=== PATIENT | female | born 1970 | race Caucasian/White ===

== ENCOUNTER 2016-10-10 08:57 | Emergency (ER) | payer OTHER ==
--- NOTE | 2016-10-10 10:14 | ED ---
General Adult HPI - General Chief complaint: Skin/Abscess/Foreign Body Stated complaint: abscess on buttocks Time Seen by Provider: 10/10/16 09:22 Source: patient, RN notes reviewed Mode of arrival: ambulatory Limitations: no limitations - History of Present Illness Initial comments: Patient 46-year-old female who presents emergency room today with a chief complaint of an abscess to the left side of the rectum 5 days. She states she' s been using some sitz baths with no relief. States never had some symptoms of past. States seems to be getting larger and more painful. Denies any other complaints or associated symptoms. Patient denies any recent fever, chills, shortness of breath, chest pain, back pain, abdominal pain, nausea or vomiting, numbness or tingling, dysuria or hematuria, constipation or diarrhea, headaches or visual changes, or any other complaints. - Related Data Previous Rx's Medication Instructions Recorded Amoxicillin/Potassium Clav 1 each PO Q12HR #20 tab 10/10/16 [Augmentin 875-125 Tablet] Hydrocodone/Acetaminophen [[place] 1 each PO Q6HR PRN #20 tab 10/10/16 5-325] Ibuprofen [Motrin] 600 mg PO Q6HR PRN #40 day 10/10/16 metroNIDAZOLE [Flagyl] 500 mg PO TID 7 Days 10/10/16 Allergies Allergy/AdvReac Type Severity Reaction Status Date / Time erythromycin base Allergy Rash/Hives Verified 10/10/16 09:05 Review of Systems ROS Statement: Those systems with pertinent positive or pertinent negative responses have been documented in the HPI. ROS Other: All systems not noted in ROS Statement are negative. Past Medical History Past Medical History: No Reported History History of Any Multi-Drug Resistant Organisms: None Reported Past Surgical History: Tubal Ligation Past Psychological History: No Psychological Hx Reported Smoking Status: Current every day smoker Past Alcohol Use History: Rare Past Drug Use History: None Reported General Exam - General Exam Comments Initial Comments: General: The patient is awake and alert, in no distress, and does not appear acutely ill. Eye: Pupils are equal, round and reactive to light, extra-ocular movements are intact. No nystagmus. There is normal conjunctiva bilaterally. No signs of icterus. Ears, nose, mouth and throat: There are moist mucous membranes and no oral lesions. Neck: The neck is supple, there is no tenderness or JVD. Cardiovascular: There is a regular rate and rhythm. No murmur, rub or gallop is appreciated. Respiratory: Lungs are clear to auscultation, respirations are non-labored, breath sounds are equal. No wheezes, stridor, rales, or rhonchi. Musculoskeletal: Normal ROM, no tenderness. Strength 5/5. Sensation intact. Pulses equal bilaterally 2+. Neurological: A&O x 3. CN II-XII intact, There are no obvious motor or sensory deficits. Coordination appears grossly intact. Speech is normal. Skin: Skin is warm and dry and no rashes or lesions are noted. Psychiatric: Cooperative, appropriate mood & affect, normal judgment. : ER nurse renu Huang present for exam. Patient does have abscess perirectal on the left side measuring approximately 5 cm. No area of fluctuance or abscess head. Limitations: no limitations Course Vital Signs 10/10/16 09:03 Temperature 98.7 F Pulse Rate 101 H Respiratory 18 Rate Blood Pressure 140/83 O2 Sat by Pulse 98 Oximetry Medical Decision Making - Medical Decision Making Patient was seen in conjunction with attending physician . She'll be started on antibiotics of Augmentin and Flagyl. Advised follow-up with the surgeon tomorrow. Advised return if symptoms increase or worsen. Disposition Clinical Impression: Perirectal abscess Disposition: HOME SELF-CARE Condition: Good Instructions: Abscess (ED) Additional Instructions: Please continue warm sitz baths along with antibiotics as prescribed. Please follow-up surgeon the next 1-2 days. Please return to emergency room symptoms increase or worsen or for any other concerns. Prescriptions: Amoxicillin/Potassium Clav [Augmentin 875-125 Tablet] 1 each PO Q12HR #20 tab Hydrocodone/Acetaminophen [[place] 5-325] 1 each PO Q6HR PRN #20 tab PRN Reason: Pain Ibuprofen [Motrin] 600 mg PO Q6HR PRN #40 day PRN Reason: Pain metroNIDAZOLE [Flagyl] 500 mg PO TID 7 Days Referrals: Reji Guardado MD [Primary Care Provider] - 1-2 days Brandi Wong MD [STAFF PHYSICIAN] - 1-2 days Time of Disposition: 10:13
[2016-10-10] MEDS ORDERED: IBUPROFEN 600 MG TAB PO STA (10:25)
[2016-10-10 10:35] VITALS: BP 124/58; PULSE 76; RESP 16; TEMP 99.8
== END 2016-10-10 10:33 | disposition home or self-care (01) ==
LOC: EC 08:57
DX: K61.1 Rectal abscess (principal); F17.200 Nicotine dependence, unspecified, uncomplicated; Z88.1 Allergy status to other antibiotic agents
CPT/HCPCS: 99283

== ENCOUNTER 2018-04-09 16:44 | Observation (INO) | payer OTHER ==
[2018-04-09] MEDS ORDERED: MORPHINE SULFATE 4 MG/ML SYRINGE IVP STA (17:58)
[2018-04-09] MEDS ORDERED: ONDANSETRON 4 MG/2 ML VIAL IVP STA (17:58)
[2018-04-09 18:48] LABS: Basophils # (A) 0.1 k/uL (0-0.2); Basophils % (A) 0 %; Eosinophils # (A) 0.2 k/uL (0-0.7); Eosinophils % (A) 2 %; HCT 42.2 % (34.0-46.0); HGB 14.7 gm/dL (11.4-16.0); Lymphocytes # (A) 2.6 k/uL (1.0-4.8); Lymphocytes % (A) 23 %; MCH 33.1 pg (25.0-35.0); MCHC 34.8 g/dL (31.0-37.0); MCV 95.3 fL (80.0-100.0); Mean Platelet Volume 6.6; Monocytes # (A) 0.5 k/uL (0-1.0); Monocytes % (A) 4 %; Neutrophils # (A) 7.9 k/uL (1.3-7.7); Neutrophils % (A) 70 %; Platelet Count 374 k/uL (150-450); RBC 4.43 m/uL (3.80-5.40); RDW 12.1 % (11.5-15.5); WBC 11.3 k/uL (3.8-10.6)
[2018-04-09 18:53] LABS: ALT 48 U/L (9-52); AST 30 U/L (14-36); Albumin 4.1 g/dL (3.5-5.0); Alkaline Phosphatase 105 U/L (38-126); Anion Gap 9 mmol/L; Blood Urea Nitrogen 15 mg/dL (7-17); Calcium 9.6 mg/dL (8.4-10.2); Carbon Dioxide 25 mmol/L (22-30); Chloride 105 mmol/L (98-107); Glucose 93 mg/dL (74-99); Potassium 4.4 mmol/L (3.5-5.1); Sodium 139 mmol/L (137-145); Total Bilirubin 0.4 mg/dL (0.2-1.3); Total Protein 7.7 g/dL (6.3-8.2)
--- NOTE | 2018-04-09 19:13 | CT ---
EXAMINATION TYPE: CT pelvis w con DATE OF EXAM: 04/09/2018 COMPARISON: None HISTORY: Rectal pain. CT DLP: 530.2 mGycm Automated exposure control for dose reduction was used. CONTRAST: Performed with IV Contrast, patient injected with 100ml mL of Isovue 300. FINDINGS: The visualized kidneys appear normal. There is no hydronephrosis. Ureters are not dilated. Bladder di stends smoothly. Uterus is anteverted. There is no free fluid in the pelvis. I see no pelvic mass. There is 3 x 1.7 cm fluid collection at the inferior left lateral aspect of the anus consistent with perirectal or perianal abscess. The bony pelvis is intact. I see no bony destructive process. The rosendo endix appears normal. IMPRESSION: PERIANAL ABSCESS ON THE LEFT SIDE.
--- NOTE | 2018-04-09 19:16 | ED ---
General Adult HPI <Valdez Leiva - Last Filed: 04/09/18 19:30> - General Source: patient, RN notes reviewed Mode of arrival: ambulatory Limitations: no limitations <Jase Kilpatrick - Last Filed: 04/09/18 20:07> - General Chief complaint: Skin/Abscess/Foreign Body Stated complaint: Abcess Time Seen by Provider: 04/09/18 17:03 - History of Present Illness Initial comments: 47-year-old female with a past medical history of perianal abscess presents to the emergency department for abscess. Patient states this is the same abscess that she had a year ago. Patient states it started 2 weeks ago but did pain did not start until 4 days ago. She denies fevers or chills at home. Patient states she has had the abscess drained before by a surgeon one year ago. She states it is now painful to apply pressure or sit on. She denies any abdominal pain.Patient has no other complaints at this time including shortness of breath , chest pain, abdominal pain, nausea or vomiting, headache, or visual changes. ( Jase Kilpatrick) - Related Data Home Medications Medication Instructions Recorded Confirmed Cetirizine HCl [Zyrtec] 10 mg PO DAILY PRN 04/09/18 04/09/18 Ibuprofen [Motrin Ib] 400 mg PO Q6H PRN 04/09/18 04/09/18 Naproxen Sodium [Aleve] 220 mg PO BID PRN 04/09/18 04/09/18 Allergies Allergy/AdvReac Type Severity Reaction Status Date / Time erythromycin base Allergy Rash/Hives Verified 04/09/18 17:07 Review of Systems ROS Other: All systems not noted in ROS Statement are negative. <Valdez Leiva - Last Filed: 04/09/18 19:30> ROS Other: All systems not noted in ROS Statement are negative. <Jase Kilpatrick - Last Filed: 04/09/18 20:07> ROS Statement: Those systems with pertinent positive or pertinent negative responses have been documented in the HPI. Past Medical History Past Medical History: No Reported History History of Any Multi-Drug Resistant Organisms: None Reported Past Surgical History: Tubal Ligation Past Psychological History: No Psychological Hx Reported Smoking Status: Current every day smoker Past Alcohol Use History: None Reported Past Drug Use History: None Reported - Past Family History Mother Family Medical History: Hypertension Father History Unknown: Yes Additional Family Medical History / Comment(s): macular degeneration <Jase Kilpatrick - Last Filed: 04/09/18 20:07> General Exam Limitations: no limitations General appearance: alert, in no apparent distress Head exam: Present: atraumatic, normocephalic, normal inspection Eye exam: Present: normal appearance, PERRL, EOMI. Absent: scleral icterus, conjunctival injection, periorbital swelling ENT exam: Present: normal exam, mucous membranes moist Neck exam: Present: normal inspection, full ROM. Absent: tenderness, meningismus, lymphadenopathy Respiratory exam: Present: normal lung sounds bilaterally. Absent: respiratory distress, wheezes, rales, rhonchi, stridor Cardiovascular Exam: Present: regular rate, normal rhythm, normal heart sounds. Absent: systolic murmur, diastolic murmur, rubs, gallop, clicks GI/Abdominal exam: Present: soft, normal bowel sounds. Absent: distended, tenderness, guarding, rebound, rigid Rectal exam: Present: other (patient as a 4 cm x 2 cm abscess noted along the left side of the anus, mild surrounding erythema about 3 x 5 cm.) <Jase Kilpatrick - Last Filed: 04/09/18 20:07> Vital Signs 04/09/18 16:57 Temperature 98.4 F Pulse Rate 88 Respiratory 18 Rate Blood Pressure 137/65 O2 Sat by Pulse 100 Oximetry Medical Decision Making - Lab Data Result diagrams: 04/09/18 18:26 04/09/18 18:26 <Valdez Leiva - Last Filed: 04/09/18 19:30> - Lab Data Result diagrams: 04/09/18 18:26 04/09/18 18:26 <Jase Kilpatrick - Last Filed: 04/09/18 20:07> - Medical Decision Making Patient was earlier evaluated by myself, Dr. Leiva. CT report reviewed. Case was discussed with Dr. Batres, who will admit for surgical call. Nothing by mouth after midnight. (Valdez Leiva) 47-year-old female with a past medical history. Anal abscess presents to the emergency department for abscess. Patient states this has been ongoing for about 2 weeks but just started to become painful the past 4 days. Patient had previously seen a surgeon for this and it was drained. I did look at the reports and it was a confirmed perianal abscess at that time about 1.5 years ago. At this time patient denies fevers or chills. She does state it is painful with pressure. On exam patient is a 4 cm x 2 cm abscess along the left side of the anus. No drainage noted at this time. Mild surrounding erythema about [address] Leiva also visualized abscess. At this time blood work was ordered which showed a white count of 11.3, CBC and CMP otherwise unremarkable. CT pelvis with contrast shows a 3 x 1.7 cm fluid collection at the inferior lateral left aspect of the anus consistent with perirectal or. Anal abscess. Impression reads perianal abscess on the left. C Dr. Mares was consulted by Dr. Leiva who recommended Unasyn, nothing by mouth after midnight, and admission. (Jase Kilpatrick) - Lab Data Lab Results 04/09/18 04/09/18 Range/Units 18:26 18:26 WBC 11.3 H (3.8-10.6) k/uL RBC 4.43 (3.80-5.40) m/uL Hgb 14.7 (11.4-16.0) gm/dL Hct 42.2 (34.0-46.0) % MCV 95.3 (80.0-100.0) fL MCH 33.1 (25.0-35.0) pg MCHC 34.8 (31.0-37.0) g/dL RDW 12.1 (11.5-15.5) % Plt Count 374 (150-450) k/uL Neutrophils % 70 % Lymphocytes % 23 % Monocytes % 4 % Eosinophils % 2 % Basophils % 0 % Neutrophils # 7.9 H (1.3-7.7) k/uL Lymphocytes # 2.6 (1.0-4.8) k/uL Monocytes # 0.5 (0-1.0) k/uL Eosinophils # 0.2 (0-0.7) k/uL Basophils # 0.1 (0-0.2) k/uL Sodium 139 (137-145) mmol/L Potassium 4.4 (3.5-5.1) mmol/L Chloride 105 (98-107) mmol/L Carbon Dioxide 25 (22-30) mmol/L Anion Gap 9 mmol/L BUN 15 (7-17) mg/dL Creatinine 0.61 (0.52-1.04) mg/dL Est GFR (CKD-EPI)AfAm >90 (>60 ml/min/1.73 sqM) Est GFR (CKD-EPI)NonAf >90 (>60 ml/min/1.73 sqM) Glucose 93 (74-99) mg/dL Calcium 9.6 (8.4-10.2) mg/dL Total Bilirubin 0.4 (0.2-1.3) mg/dL AST 30 (14-36) U/L ALT 48 (9-52) U/L Alkaline Phosphatase 105 (38-126) U/L Total Protein 7.7 (6.3-8.2) g/dL Albumin 4.1 (3.5-5.0) g/dL Disposition <Valdez Leiva - Last Filed: 04/09/18 19:30> Is patient prescribed a controlled substance at d/c from ED?: No Time of Disposition: 20:07 <Jase Kilpatrick - Last Filed: 04/09/18 20:07> Clinical Impression: Perianal abscess Disposition: ADMITTED IP TO THIS HOSP Condition: Good Referrals: Reji Guardado MD [Primary Care Provider] - 1-2 days
[2018-04-09] MEDS ORDERED: ONDANSETRON 4 MG/2 ML VIAL IVP PRN (20:03)
[2018-04-09] MEDS ORDERED: NALOXONE 0.4 MG/ML 1 ML VIAL IV PRN (20:03)
[2018-04-09] MEDS ORDERED: NICOTINE 14MG/24HR PATCH TRANSDERM STA (20:06)
[2018-04-09] MEDS: SODIUM CHLORIDE 0.9% 1,000 ML IV SCH (20:39)
[2018-04-09] MEDS: HYDROmorphone 1 MG/ML 1 ML SYRINGE IVP PRN (20:39)
[2018-04-09] MEDS: AMPICILLIN-SULBACTAM 3 GM in SODIUM CHLORIDE 0.9% 100 ML IVPB SCH (21:55)
[2018-04-10] MEDS: HYDROmorphone 1 MG/ML 1 ML SYRINGE IVP PRN ×2 (00:37→08:02)
[2018-04-10] MEDS: MORPHINE SULFATE 4 MG/ML SYRINGE IV PRN ×2 (04:47→13:21)
[2018-04-10] MEDS: AMPICILLIN-SULBACTAM 3 GM in SODIUM CHLORIDE 0.9% 100 ML IVPB SCH ×4 (04:47→21:55)
[2018-04-10] MEDS: SODIUM CHLORIDE 0.9% 1,000 ML IV SCH ×2 (08:02→17:28)
[2018-04-10 09:35] LABS: Basophils # (A) 0.1 k/uL (0-0.2); Basophils % (A) 1 %; Eosinophils # (A) 0.2 k/uL (0-0.7); Eosinophils % (A) 3 %; HCT 39.9 % (34.0-46.0); HGB 12.9 gm/dL (11.4-16.0); Lymphocytes # (A) 2.1 k/uL (1.0-4.8); Lymphocytes % (A) 25 %; MCH 31.1 pg (25.0-35.0); MCHC 32.4 g/dL (31.0-37.0); MCV 96.1 fL (80.0-100.0); Mean Platelet Volume 6.5; Monocytes # (A) 0.5 k/uL (0-1.0); Monocytes % (A) 6 %; Neutrophils # (A) 5.3 k/uL (1.3-7.7); Neutrophils % (A) 63 %; Platelet Count 369 k/uL (150-450); RBC 4.15 m/uL (3.80-5.40); RDW 12.3 % (11.5-15.5); WBC 8.4 k/uL (3.8-10.6)
--- NOTE | 2018-04-10 09:41 | P.GSHP ---
History of Present Illness H&P Date: 04/10/18 48-year-old female presented on the day of admission to the emergency room with a chief complaint of developing pain in the perineal area no fever chills. Patient stated that she had 4 days ago increased pain in the perineal area with an abscess. stated it initially started 2 weeks ago when she developed some swelling and tenderness in the left perineal area. stated that she had some Flagyl left over from last hospitalization she did take it. There was no relief. Patient does have a history of incision and drainage of an ulcer of the left coccyx peritoneal area debridement was done on September [address] hanks. Patient states that she has not had any recurrence until this current episode. In the emergency room a computed tomography scan of the pelvis with contrast was obtained it did show the perianal abscess on the left side measuring 3 x 1.7 centimeter in the left lateral aspect of the anus consistent with a perianal abscess. The area is tender to the touch firm warm with redness Past surgical history incision and drainage of the left perineal area September 2016 , tubal ligation. Past medical history none. Social current every day smoker - Review of Systems Comment: Essentially unremarkable except as mentioned in the present Past Medical History Past Medical History: No Reported History History of Any Multi-Drug Resistant Organisms: None Reported Past Surgical History: Tubal Ligation Past Psychological History: No Psychological Hx Reported Smoking Status: Current every day smoker Past Alcohol Use History: None Reported Past Drug Use History: None Reported - Past Family History Mother Family Medical History: Hypertension Father History Unknown: Yes Additional Family Medical History / Comment(s): macular degeneration Medications and Allergies Home Medications Medication Instructions Recorded Confirmed Type Cetirizine HCl [Zyrtec] 10 mg PO DAILY PRN 04/09/18 04/09/18 History Ibuprofen [Motrin Ib] 800 mg PO Q6H PRN 04/09/18 04/09/18 History Naproxen Sodium [Aleve] 220 mg PO BID PRN 04/09/18 04/09/18 History Allergies Allergy/AdvReac Type Severity Reaction Status Date / Time erythromycin base Allergy Severe Rash/Hives Verified 04/09/18 21:41 avocado AdvReac Rash/Hives Verified 04/09/18 21:42 Surgical - Exam Vital Signs Temp Pulse Resp BP Pulse Ox 98.4 F 88 18 137/65 100 04/09/18 16:57 04/09/18 16:57 04/09/18 16:57 04/09/18 16:57 04/09/18 16:57 GENERAL APPEARANCE: 48-year-old female patient is alert, oriented, in no acute distress. VITAL SIGNS: Reviewed HEENT: Head is normocephalic and atraumatic. Pupils are equal and reactive. The nares are patent. Oropharynx is clear without lesions. NECK: Supple without lymphadenopathy. Traches midline. HEART: S1, S2. Regular rate and rhythm. No murmur denying chest pain LUNGS: No crackles or wheezes are heard. On room air no shortness of breath ABDOMEN: Soft, nontender, nondistended with good bowel sounds. No peritoneal signs. No palpable organomegaly or masses. Reports no nausea vomiting no frequent stooling denies any burning on urination when questioning EXTREMITIES: Normal skin color and turgor. No cyanosis, rash, ulceration, clubbing or edema. Radial pedal pulses are 2/4 bilaterally. NEUROLOGICAL: No focal deficits. Strength and sensation are grossly intact. rectal exam left side of the anus moderate amount of tenderness with surrounding erythema approximate 4 x 2 cm along the left side of the anus area firm and tender to the touch no drainage no open area Results - Labs 04/10/18 09:10 04/09/18 18:26 Abnormal Lab Results - Last 24 Hours (Table) 04/09/18 Range/Units 18:26 WBC 11.3 H (3.8-10.6) k/uL Neutrophils # 7.9 H (1.3-7.7) k/uL Diabetes panel 04/09/18 Range/Units 18:26 Sodium 139 (137-145) mmol/L Potassium 4.4 (3.5-5.1) mmol/L Chloride 105 (98-107) mmol/L Carbon Dioxide 25 (22-30) mmol/L BUN 15 (7-17) mg/dL Creatinine 0.61 (0.52-1.04) mg/dL Glucose 93 (74-99) mg/dL Calcium 9.6 (8.4-10.2) mg/dL AST 30 (14-36) U/L ALT 48 (9-52) U/L Alkaline Phosphatase 105 (38-126) U/L Total Protein 7.7 (6.3-8.2) g/dL Albumin 4.1 (3.5-5.0) g/dL Calcium panel 04/09/18 Range/Units 18:26 Calcium 9.6 (8.4-10.2) mg/dL Albumin 4.1 (3.5-5.0) g/dL Pituitary panel 04/09/18 Range/Units 18:26 Sodium 139 (137-145) mmol/L Potassium 4.4 (3.5-5.1) mmol/L Chloride 105 (98-107) mmol/L Carbon Dioxide 25 (22-30) mmol/L BUN 15 (7-17) mg/dL Creatinine 0.61 (0.52-1.04) mg/dL Glucose 93 (74-99) mg/dL Calcium 9.6 (8.4-10.2) mg/dL Adrenal panel 04/09/18 Range/Units 18:26 Sodium 139 (137-145) mmol/L Potassium 4.4 (3.5-5.1) mmol/L Chloride 105 (98-107) mmol/L Carbon Dioxide 25 (22-30) mmol/L BUN 15 (7-17) mg/dL Creatinine 0.61 (0.52-1.04) mg/dL Glucose 93 (74-99) mg/dL Calcium 9.6 (8.4-10.2) mg/dL Total Bilirubin 0.4 (0.2-1.3) mg/dL AST 30 (14-36) U/L ALT 48 (9-52) U/L Alkaline Phosphatase 105 (38-126) U/L Total Protein 7.7 (6.3-8.2) g/dL Albumin 4.1 (3.5-5.0) g/dL Assessment and Plan Assessment: Impression Present on admission tenderness swelling pain left perineal area suspect due to left side perirectal abscess measure 4 x 2 cm History of a prior incision and drainage September 2016 of the left peritoneal abscess CAT scan pelvis with contrast shows 3 x 1.7 fluid collection consistent with perirectal or anal abscess Current every day smoker Present on admission leukocytosis suspect due to an perianal perirectal abscess Plan Keep nothing by mouth for now tentative schedule for an incision and drainage of the perineal abscess per Dr. stephanie PATEL Unasyn as ordered IV fluid as ordered DVT and GI prophylaxis Further recommendations pending The above impression and plan of care have been discussed and directed by signing physician. Mackenzie Fabian nurse practitioner acting as scribe for signing physician.
[2018-04-10] MEDS ORDERED: IV FLUID CONTINUATION 500 ML IV ONE (14:19)
[2018-04-10] MEDS ORDERED: ONDANSETRON 4 MG/2 ML VIAL IVP ONE (14:40)
[2018-04-10] MEDS ORDERED: DEXAMETHASONE SOD PHOS (MDV) 100 MG/10 ML VIAL IVP ONE (14:40)
[2018-04-10] MEDS ORDERED: HEPARIN SODIUM,PORCINE 5,000 UNIT/ML 1 ML VIAL SQ ONE (14:41)
[2018-04-10] MEDS ORDERED: fentaNYL (PF) 50 MCG/ML 2 ML AMP ONE (16:16)
[2018-04-10] MEDS ORDERED: PROPOFOL 10 MG/ML 20 ML VIAL IV ONE (16:16)
[2018-04-10] MEDS ORDERED: MIDAZOLAM 2 MG/2 ML VIAL ONE (16:16)
[2018-04-10] MEDS ORDERED: BUPIVACAIN-EPI 0.25%-1:200,000 30 ML VIAL SQ ONE (16:32)
[2018-04-10] MEDS ORDERED: IV FLUID CONTINUATION 1,000 ML IV ONE ×2 (16:51)
--- NOTE | 2018-04-10 17:34 | P.OP ---
Date of Procedure: 04/10/18 Preoperative Diagnosis: Perianal abscess Postoperative Diagnosis: Perianal abscess Procedure(s) Performed: Incision and drainage of perianal abscess Anesthesia: MAC Surgeon: Kayode Mares Estimated Blood Loss (ml): 5 Pathology: other (Wound culture) Condition: stable Disposition: PACU Description of Procedure: The patient's placed on the operating table in the supine position. She received IV sedation. She is placed in stirrups. Patient had a left perianal abscess. The area was anesthetized 1% local Xylocaine. A cruciate incision was made over the abscess. The abscess cavity was cultured. The wound was packed with iodoform Nu Gauze. Patient top procedure well was sent to recovery room stable condition.
[2018-04-10] MEDS ORDERED: NICOTINE 21MG/24HR PATCH TRANSDERM SCH (21:00)
[2018-04-11] MEDS: SODIUM CHLORIDE 0.9% 1,000 ML IV SCH (03:34)
[2018-04-11] MEDS: AMPICILLIN-SULBACTAM 3 GM in SODIUM CHLORIDE 0.9% 100 ML IVPB SCH ×2 (03:34→10:01)
[2018-04-11] MEDS: MORPHINE SULFATE 4 MG/ML SYRINGE IV PRN ×3 (07:48→15:01)
--- NOTE | 2018-04-11 09:06 | P.CONS ---
History of Present Illness - Reason for Consult Consult date: 04/11/18 Perianal abscess - History of Present Illness This is a 48-year-old female patient gives history of having a perianal abscess about one and half years ago and had an I&D done in the doctor' s office. She recently developed pain in the perineal area about 2 weeks ago and then this became more swollen and tender and more painful. She had Flagyl at home from a previous perianal abscess and started taking that but it did not improve. Patient came in to [facility] emergency center. She was afebrile, white count initially 11.3, creatinine 0.61, hCG not detectable. CAT scan of the pelvis revealed a perianal abscess on the left side measuring 3 x 1.7 cm. Patient subsequently underwent I&D with Dr. Mares on April 10. She states that since then the pain and swelling is much improved. She did have low-grade fevers at home but these have resolved. Wound culture is in progress. Blood cultures showing no growth at 24 hours. Patient is currently on Unasyn. Patient is able to tolerate diet with no nausea, vomiting or diarrhea. Review of Systems All systems: negative Constitutional: Denies chills, Denies fatigue, Denies fever, Denies poor appetite, Denies weakness, Denies weight gain Eyes: denies blurred vision, denies pain Ears, nose, mouth and throat: Denies dental pain, Denies dysphagia, Denies headache, Denies mouth pain, Denies sore throat, Denies vertigo Cardiovascular: Denies chest pain, Denies dyspnea on exertion, Denies edema, Denies leg edema, Denies lightheadedness, Denies shortness of breath, Denies syncope Respiratory: Reports cough, Denies cough with sputum, Denies dyspnea, Denies excessive sputum, Denies hemoptysis, Denies home oxygen, Denies wheezing Gastrointestinal: Denies abdominal pain, Denies diarrhea, Denies loss of appetite, Denies nausea, Denies vomiting Genitourinary: Denies dysuria, Denies hematuria, Denies urgency, Denies urinary frequency Musculoskeletal: Denies frequent falls, Denies gait dysfunction, Denies muscle weakness, Denies myalgias Integumentary: Reports wounds, Denies pruritus, Denies rash Neurological: Denies aphasia, Denies balance difficulties, Denies change in mentation, Denies confusion, Denies double vision, Denies headaches, Denies numbness, Denies seizures, Denies weakness Psychiatric: Denies anxiety, Denies depression Endocrine: Denies fatigue, Denies weight change Past Medical History Past Medical History: No Reported History History of Any Multi-Drug Resistant Organisms: None Reported Past Surgical History: Tubal Ligation Additional Past Surgical History / Comment(s): Perianal abscess I&D 2016, perianal abscess I&D 2017 Past Psychological History: No Psychological Hx Reported Smoking Status: Current every day smoker Past Alcohol Use History: None Reported Additional Past Alcohol Use History / Comment(s): Patient is a smoker one pack per day for 18 years. She denies any marijuana or street drug use. 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 Past Drug Use History: None Reported - Past Family History Mother Family Medical History: Hypertension Father History Unknown: Yes Additional Family Medical History / Comment(s): macular degeneration Medications and Allergies Home Medications Medication Instructions Recorded Confirmed Type Cetirizine HCl [Zyrtec] 10 mg PO DAILY PRN 04/09/18 04/09/18 History Ibuprofen [Motrin Ib] 800 mg PO Q6H PRN 04/09/18 04/09/18 History Naproxen Sodium [Aleve] 220 mg PO BID PRN 04/09/18 04/09/18 History Allergies Allergy/AdvReac Type Severity Reaction Status Date / Time erythromycin base Allergy Severe Rash/Hives Verified 04/09/18 21:41 avocado AdvReac Rash/Hives Verified 04/09/18 21:42 Physical Exam Vitals: Vital Signs Temp Pulse Pulse Resp BP Pulse Ox 04/11/18 02:00 97.6 F 71 18 135/80 98 04/10/18 21:11 94 20 151/72 97 04/10/18 20:11 99 20 132/72 96 04/10/18 19:11 89 20 144/79 100 04/10/18 18:41 98.0 F 87 20 145/79 100 04/10/18 18:11 75 20 124/66 99 04/10/18 17:56 79 20 136/87 97 04/10/18 17:41 79 20 112/71 96 04/10/18 17:26 97.9 F 78 20 128/73 97 04/10/18 17:02 92 16 108/80 96 04/10/18 16:47 97.5 F L 90 20 109/56 95 04/10/18 14:15 98.3 F 80 18 118/64 99 04/10/18 12:21 98.3 F 78 16 115/77 97 Intake and Output 04/10/18 04/11/18 04/11/18 22:59 06:59 14:59 Intake Total 1410 200 Output Total 5 Balance 1405 200 Intake: IV 250 Oral 1160 200 Output: Estimated Blood Loss 5 Other: Voiding Method Toilet # Voids 2 Gen: This is a 48-year-old female. She is sitting up in bed appears to be comfortable and in no acute distress. HEENT: Head is atraumatic, normocephalic. Pupils equal, round. Sclerae is anicteric. Conjunctiva pink. His memories of the mouth are moist. NECK: Supple. No JVD. No lymphadenopathy. No thyromegaly. LUNGS: Clear to auscultation. No wheezes or rhonchi. No intercostal retractions. HEART: Regular rate and rhythm. No murmur. ABDOMEN: Soft. Bowel sounds are present. No masses. No tenderness. EXTREMITIES: No pedal edema. No calf tenderness. Dorsalis pedis +2 bilaterally. NEUROLOGICAL: Patient is awake, alert and oriented x3. Cranial nerves 2 through 12 are grossly intact. Results Results: Laboratory Results WBC 8.4 k/uL (3.8-10.6) 04/10/18 09:10 RBC 4.15 m/uL (3.80-5.40) 04/10/18 09:10 Hgb 12.9 gm/dL (11.4-16.0) 04/10/18 09:10 Hct 39.9 % (34.0-46.0) 04/10/18 09:10 MCV 96.1 fL (80.0-100.0) 04/10/18 09:10 MCH 31.1 pg (25.0-35.0) 04/10/18 09:10 MCHC 32.4 g/dL (31.0-37.0) 04/10/18 09:10 RDW 12.3 % (11.5-15.5) 04/10/18 09:10 Plt Count 369 k/uL (150-450) 04/10/18 09:10 Neutrophils % 63 % 04/10/18 09:10 Lymphocytes % 25 % 04/10/18 09:10 Monocytes % 6 % 04/10/18 09:10 Eosinophils % 3 % 04/10/18 09:10 Basophils % 1 % 04/10/18 09:10 Neutrophils # 5.3 k/uL (1.3-7.7) 04/10/18 09:10 Lymphocytes # 2.1 k/uL (1.0-4.8) 04/10/18 09:10 Monocytes # 0.5 k/uL (0-1.0) 04/10/18 09:10 Eosinophils # 0.2 k/uL (0-0.7) 04/10/18 09:10 Basophils # 0.1 k/uL (0-0.2) 04/10/18 09:10 Sodium 139 mmol/L (137-145) 04/09/18 18:26 Potassium 4.4 mmol/L (3.5-5.1) 04/09/18 18:26 Chloride 105 mmol/L (98-107) 04/09/18 18:26 Carbon Dioxide 25 mmol/L (22-30) 04/09/18 18:26 Anion Gap 9 mmol/L 04/09/18 18:26 BUN 15 mg/dL (7-17) 04/09/18 18:26 Creatinine 0.61 mg/dL (0.52-1.04) 04/09/18 18:26 Est GFR (CKD-EPI)AfAm >90 (>60 ml/min/1.73 sqM) 04/09/18 18:26 Est GFR (CKD-EPI)NonAf >90 (>60 ml/min/1.73 sqM) 04/09/18 18:26 Glucose 93 mg/dL (74-99) 04/09/18 18:26 Calcium 9.6 mg/dL (8.4-10.2) 04/09/18 18:26 Total Bilirubin 0.4 mg/dL (0.2-1.3) 04/09/18 18:26 AST 30 U/L (14-36) 04/09/18 18:26 ALT 48 U/L (9-52) 04/09/18 18:26 Alkaline Phosphatase 105 U/L (38-126) 04/09/18 18: Total Protein 7.7 g/dL (6.3-8.2) 04/09/18 18: Albumin 4.1 g/dL (3.5-5.0) 04/09/18 18: HCG, Qual Not Detected 04/10/18 09:10 CBC & Chem 7: 04/10/18 09:10 12 18: Labs: Microbiology - Last 24 Hours (Table) 04/10/18 16:33 Gram Stain - Preliminary Groin Wound Culture - Preliminary 04/10/18 16:33 Anaerobic Culture - Preliminary Groin 04/09/18 18: Blood Culture - Preliminary Blood No Growth after 24 hours Assessment and Plan Plan: This is a 48-year-old female who presented to the hospital with perianal abscess status post I&D with Dr. Mares done on April 10. She is currently on IV antibiotics in form of Unasyn. The patient has been afebrile and is tolerating diet. She is anticipating discharge home today. Antibiotic recommendations will be made. Wound culture is in progress and blood culture showing no growth at 24 hours. Continue supportive care. Further medications as patient progresses. The above dictated assessment and findings were discussed with Dr. Ortiz. The impression and plan of care have been directed as dictated. Trixie Zavala nurse practitioner acting as scribe for Dr. Ortiz.
[2018-04-11 09:22] VITALS: RESP 16
[2018-04-11 12:53] VITALS: BP 137/78; PULSE 79; TEMP 97.9
--- NOTE | 2018-04-11 12:57 | P.CONS ---
History of Present Illness - History of Present Illness On-call hospitalist covering for Dr. Marshall This is a pleasant 48 years old female with past medical history of tubal ligation, no other significant history presents to the surgical service with increasing perineal pain for 4 days duration. Patient already underwent incision and drainage and of the perineal abscess by the surgical team. Patient has been evaluated by infectious disease for antibiotic choice and duration. Patient is stable hemodynamically. Patient denies chest pain or dyspnea. No change in urine or bowel habits. Patient is able to move around with no difficulty. She stated that her primary care doctor has already contacted her. Patient is already set for discharge today and she has an appointment to follow up with Dr. Walker that she is aware of and told me she is going to follow up with Review of Systems CONSTITUTIONAL: No fever, no malaise, no fatigue. HEENT: No recent visual problems or hearing problems. Denied any sore throat. CARDIOVASCULAR: No orthopnea, PND, no palpitations, no syncope. PULMONARY: No shortness of breath, no cough, no hemoptysis. GASTROINTESTINAL: No diarrhea, no nausea, no vomiting, no abdominal pain. Normoactive bowel sounds. NEUROLOGICAL: No headaches, no weakness, no numbness. HEMATOLOGICAL: Denies any bleeding or petechiae. GENITOURINARY: Denies any burning micturition, frequency, or urgency. MUSCULOSKELETAL/RHEUMATOLOGICAL: Denies any joint pain, swelling, or any muscle pain. ENDOCRINE: Denies any polyuria or polydipsia. Past Medical History Past Medical History: No Reported History History of Any Multi-Drug Resistant Organisms: None Reported Past Surgical History: Tubal Ligation Additional Past Surgical History / Comment(s): Perianal abscess I&D 2017, perianal abscess I&D 2018 Past Psychological History: No Psychological Hx Reported Smoking Status: Current every day smoker Past Alcohol Use History: None Reported Additional Past Alcohol Use History / Comment(s): Patient is a smoker one pack per day for 18 years. She denies any marijuana or street drug use. 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 Past Drug Use History: None Reported - Past Family History Mother Family Medical History: Hypertension Father History Unknown: Yes Additional Family Medical History / Comment(s): macular degeneration Medications and Allergies Home Medications Medication Instructions Recorded Confirmed Type Cetirizine HCl [Zyrtec] 10 mg PO DAILY PRN 04/09/18 04/09/18 History Ibuprofen [Motrin Ib] 800 mg PO Q6H PRN 04/09/18 04/09/18 History Naproxen Sodium [Aleve] 220 mg PO BID PRN 04/09/18 04/09/18 History Allergies Allergy/AdvReac Type Severity Reaction Status Date / Time erythromycin base Allergy Severe Rash/Hives Verified 04/09/18 21:41 avocado AdvReac Rash/Hives Verified 04/09/18 21:42 Physical Exam Vitals: Vital Signs Temp Pulse Pulse Resp BP Pulse Ox 04/11/18 08:37 97.6 F 77 16 138/74 99 04/11/18 02:00 97.6 F 71 18 135/80 98 04/10/18 21:11 94 20 151/72 97 04/10/18 20:11 99 20 132/72 96 04/10/18 19:11 89 20 144/79 100 04/10/18 18:41 98.0 F 87 20 145/79 100 04/10/18 18:11 75 20 124/66 99 04/10/18 17:56 79 20 136/87 97 04/10/18 17:41 79 20 112/71 96 04/10/18 17:26 97.9 F 78 20 128/73 97 04/10/18 17:02 92 16 108/80 96 04/10/18 16:47 97.5 F L 90 20 109/56 95 04/10/18 14:15 98.3 F 80 18 118/64 99 Intake and Output 04/10/18 04/11/18 04/11/18 22:59 06:59 14:59 Intake Total 1410 200 Output Total 5 Balance 1405 200 Intake: IV 250 Oral 1160 200 Output: Estimated Blood Loss 5 Other: Voiding Method Toilet # Voids 2 GENERAL: The patient is alert and oriented x3, not in any acute distress. Well developed, well nourished. HEENT: Pupils are round and equally reacting to light. EOMI. No scleral icterus. No conjunctival pallor. Normocephalic, atraumatic. No pharyngeal erythema. No thyromegaly. CARDIOVASCULAR: S1 and S2 present. No murmurs, rubs, or gallops. PULMONARY: Chest is clear to auscultation, no wheezing or crackles. ABDOMEN: Soft, nontender, nondistended, normoactive bowel sounds. No palpable organomegaly. MUSCULOSKELETAL: No joint swelling or deformity. EXTREMITIES: No cyanosis, clubbing, or pedal edema. NEUROLOGICAL: Gross neurological examination did not reveal any focal deficits. SKIN: No rashes. Results CBC & Chem 7: 04/10/18 09:10 12 18:26 Labs: Microbiology - Last 24 Hours (Table) 04/10/18 16:33 Gram Stain - Preliminary Groin Wound Culture - Preliminary 04/10/18 16:33 Anaerobic Culture - Preliminary Groin 04/09/18 18:26 Blood Culture - Preliminary Blood No Growth after 24 hours Assessment and Plan Plan: This is a pleasant 48 is soft female presents with perineal abscess. Labs and medication were reviewed. Patient is already set for discharge by the primary teeth. Indication reviewed. CBC within normal limits. BMP was unremarkable as well as liver enzymes. Antibiotic as per infectious team. Patient is going to be discharged today by the primary team. And she has a appointment with Dr. Pollock to follow-up with. Patient was instructed to follow up with her PCP, patient stated that she will call and make an appointment within 1 week Thank you for consulting us, we will see as needed please feel free to contact us for any further question or clarification.
[2018-04-11] MEDS ORDERED: CIPROFLOXACIN HCL 500 MG TAB PO STA (13:42)
[2018-04-11] MEDS ORDERED: metroNIDAZOLE 500 MG TAB PO STA (13:42)
--- NOTE | 2018-04-11 14:07 | P.DS ---
Providers Date of admission: 04/09/18 19:31 Attending physician: Kayode Mares Consults: 04/10/18 16:55 Consult Physician Routine Consulting Provider: Pritesh Ortiz Consult Reason/Comments: perianal abscess Do you want consulting provider notified?: Yes Consult Physician Routine Consulting Provider: Jhonny Marshall Consult Reason/Comments: med manage Do you want consulting provider notified?: Yes Primary care physician: [facility] Course: 48-year-old female presented to the emergency room to be evaluated for perianal pain on the left side. Patient developed the symptoms proximal 0.4 days ago. Patient states that she been treated in the past for similar perianal abscess. In the emergency room a computed tomography scan of the pelvis with contrast was obtained did show perianal abscess left side measuring 3 x 1.7 cm left lateral aspect of the wrist consistent with a perianal abscess On April 10 patient underwent incision and drainage of perianal abscess. Postop patient was seen by infectious disease Dr. Jones. Recommendations noted and appreciated. Patient was felt to be appropriate to be discharged home. Impression discharge diagnosis Status post April 10 incision and drainage of perianal abscess Present on admission tenderness swelling pain left perineal area suspect due to left side perirectal abscess measure 3 x 1.7 cm History of a prior incision and drainage September 2016 of the left peritoneal abscess CAT scan pelvis with contrast shows 3 x 1.7 fluid collection consistent with perirectal or anal abscess Current every day smoker Present on admission leukocytosis suspect due to an perianal perirectal abscess The above impression and plan of care have been discussed and directed by signing physician. Mackenzie Fabian nurse practitioner acting as scribe for signing physician. Patient Condition at Discharge: Good Plan - Discharge Summary New Discharge Prescriptions: New Ciprofloxacin HCl [Cipro] 500 mg PO Q12HR #20 tablet metroNIDAZOLE [Flagyl] 500 mg PO TID #30 tab HYDROcodone/APAP 5-325MG [Henry 5-325] 1 tab PO Q6HR PRN 3 Days #12 tab PRN Reason: Mild Pain Continue Naproxen Sodium [Aleve] 220 mg PO BID PRN PRN Reason: Pain Cetirizine HCl [Zyrtec] 10 mg PO DAILY PRN PRN Reason: Allergy Symptoms Ibuprofen [Motrin Ib] 800 mg PO Q6H PRN PRN Reason: Pain Discharge Medication List Cetirizine HCl [Zyrtec] 10 mg PO DAILY PRN 04/09/18 [History] Ibuprofen [Motrin Ib] 800 mg PO Q6H PRN 04/09/18 [History] Naproxen Sodium [Aleve] 220 mg PO BID PRN 04/09/18 [History] Ciprofloxacin HCl [Cipro] 500 mg PO Q12HR #20 tablet 04/11/18 [Rx] HYDROcodone/APAP 5-325MG [Henry 5-325] 1 tab PO Q6HR PRN 3 Days #12 tab [Rx] metroNIDAZOLE [Flagyl] 500 mg PO TID #30 tab 04/11/18 [Rx] Follow up Appointment(s)/Referral(s): Reji Guardado MD [Primary Care Provider] - 1-2 days Activity/Diet/Wound Care/Special Instructions: Follow up with Dr. Mares on April 18 at 2:50. tub bath daily Daily packing to the surgical site dry No lifting over 10 pounds for the next 2 weeks. May use ice packs to surgical site. No driving while taking narcotic for pain. Discharge Disposition: HOME SELF-CARE
--- NOTE | 2018-04-11 23:03 | P.CON ---
Consult Note - . Consult date: 04/11/18 Assessment/Plan:: This is a 48-year-old female patient gives history of having a perianal abscess about one and half years ago and had an I&D done in the doctor' s office. She recently developed pain in the perineal area about 2 weeks ago and then this became more swollen and tender and more painful. She had Flagyl at home from a previous perianal abscess and started taking that but it did not improve. Patient came in to [facility] emergency center. She was afebrile, white count initially 11.3, creatinine 0.61, hCG not detectable. CAT scan of the pelvis revealed a perianal abscess on the left side measuring 3 x 1.7 cm. Patient subsequently underwent I&D with Dr. Mares on April 10. She states that since then the pain and swelling is much improved. She did have low-grade fevers at home but these have resolved. Wound culture is in progress. Blood cultures showing no growth at 24 hours. Patient is currently on Unasyn. Patient is able to tolerate diet with no nausea, vomiting or diarrhea. Please see the consult as dictated by nurse practitioner Mrs. Trixie Zavala. For sexual woman with history of a prior. 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 She became somewhat dehydrated and became constipated. Upon passes his stool she felt some tearing to her rectum after which she developed the current abscess requiring surgical incision and drainage. Is currently packed and she is feeling better. The prior E. coli was noticed to be resistant to Unasyn and consequently antibiotic therapy is sent to her pharmacy with ciprofloxacin and Flagyl in hopes that she can afford to complete this course of therapy. She'll follow-up with the surgeon and he will give advice as to her potential back to work date here in the near future. She fortunately is not in severe pain at this point in time. Drainage is minimal the second impact with the iodoform gauze and covered with an ABD pad. The disposable briefs also help keep dressing in place. Negative evaluation, assessment and plan as dictated by nurse practitioner Mrs. Trixie Zavala.
== END 2018-04-11 15:25 | disposition home or self-care (01) ==
LOC: EC 16:44 → 6PED 19:31
PROVIDERS: ADMIT Surgery; ATTEND Surgery
DX: K62.89 Other specified diseases of anus and rectum (principal); R10.2 Pelvic and perineal pain; K61.0 Anal abscess; D72.829 Elevated white blood cell count, unspecified; Z82.49 Family history of ischemic heart disease and other diseases of the circulatory system; Z83.518 Family history of other specified eye disorder; Z88.1 Allergy status to other antibiotic agents; Z91.018 Allergy to other foods; F17.210 Nicotine dependence, cigarettes, uncomplicated
CPT/HCPCS: 46050; 96376; 96374; 96375; 99284; 36415; 81025; 80053; 85025 ×2; 84703; 87040; 87070; 87205; 87075; 87077; 87186; 72193; G0378 ×3; S4990 ×2; J2250; J2270 ×3; J1644; J2405 ×2; J3010; J1170 ×2; J0295 ×3; J1100; J2704; Q9967

== ENCOUNTER 2020-08-11 09:59 | Emergency (ER) | payer OTHER ==
[2020-08-11] MEDS ORDERED: SODIUM CHLORIDE 0.9% 1,000 ML IV STA (10:39)
--- NOTE | 2020-08-11 11:00 | ED ---
SOB HPI - General Chief Complaint: Shortness of Breath Stated Complaint: SOB Time Seen by Provider: 08/11/20 10:07 Source: patient, RN notes reviewed Mode of arrival: ambulatory Limitations: no limitations - History of Present Illness Initial Comments: 50-year-old white female, a&oX4 in NAD Today patient presents to the emergency room with shortness of breath since June, sometimes pain radiates to left flank. Patient seen primary care doctor Dr. Mendieta in November and was prescribed Celebrex for arthritis in knees and Pepcid for gastroenteritis. Patient states stopped her Celebrex in April because it was upsetting her stomach. She also complains of epigastric pain sometimes radiates into her back, PMD gave her Pepcid but was not working, states did start taking Pepcid twice a day with no relief for 2 weeks, returned back to once a day dosing. Patient states since June has had increasing shortness of breath with exertion, states relief when she lays flat. Patient complains of left flank plain also since June, states sometimes just the skin is sensitive to touch, denies injury. Patient states has not seen Dr. Guardado, was a virtual visit which she declined. Denies change in cough or fevers, denies chest pain or pre ssure. Denies recent exposure to illnesses. Pt has a medical history of GERD and surgical history of tubal ligation and anal abscesses in 2016 and 2018. Patient is a pack-a-day smoker for the past 30 years. MD Complaint: shortness of breath -: month(s) (2 05/03) Radiation: back (left flank) Severity: moderate Severity scale (1-10): 5 Quality: sharp Consistency: constant Improves With: rest Worsens With: movement Known History Of: other (gerd) Context: occurred during exertion Treatments Prior to Arrival: other (pepcid) - Related Data Home Oxygen Therapy: No Home Medications Medication Instructions Recorded Confirmed Cetirizine HCl [Zyrtec] 10 mg PO DAILY PRN 04/09/18 08/11/20 Famotidine [Pepcid AC] 10 mg PO DAILY 08/11/20 08/11/20 Montelukast [Singulair] 10 mg PO HS 08/11/20 08/11/20 Allergies Allergy/AdvReac Type Severity Reaction Status Date / Time erythromycin base Allergy Severe Rash/Hives Verified 08/11/20 11:16 avocado AdvReac Rash/Hives Verified 08/11/20 11:16 Review of Systems ROS Statement: Those systems with pertinent positive or pertinent negative responses have been documented in the HPI. ROS Other: All systems not noted in ROS Statement are negative. Past Medical History Past Medical History: GERD/Reflux Additional Past Medical History / Comment(s): recent admission for anal abscess in 2017 History of Any Multi-Drug Resistant Organisms: None Reported Past Surgical History: Tubal Ligation Additional Past Surgical History / Comment(s): Perianal abscess I&D 2016, perianal abscess I&D 2017 Past Anesthesia/Blood Transfusion Reactions: Postoperative Nausea & Vomiting (PONV) Past Psychological History: No Psychological Hx Reported Smoking Status: Current every day smoker Past Alcohol Use History: Rare Past Drug Use History: Marijuana - Past Family History Mother Family Medical History: Hypertension Father History Unknown: Yes Additional Family Medical History / Comment(s): macular degeneration General Exam Limitations: no limitations General appearance: alert, in no apparent distress Head exam: Present: atraumatic, normocephalic, normal inspection Eye exam: Present: normal appearance, PERRL, EOMI. Absent: scleral icterus, conjunctival injection, periorbital swelling ENT exam: Present: normal exam, mucous membranes moist Neck exam: Present: normal inspection, full ROM. Absent: tenderness, meningismus, lymphadenopathy, thyromegaly Respiratory exam: Present: normal lung sounds bilaterally. Absent: respiratory distress, wheezes, rales, rhonchi, stridor, chest wall tenderness, accessory muscle use Cardiovascular Exam: Present: tachycardia, other (Bilateral pedal and radial pulses present and equal). Absent: JVD GI/Abdominal exam: Present: soft, normal bowel sounds. Absent: distended, tenderness, guarding, rebound, rigid Extremities exam: Present: normal inspection, full ROM, normal capillary refill. Absent: tenderness, pedal edema, joint swelling, calf tenderness Left Foot/Toe exam: Present: full ROM Neurovascular tendon exam: Present: no vascular compromise. Absent: extremity cold to touch, pallor Right Foot/Toe exam: Present: full ROM. Absent: tenderness, ecchymosis Neurovascular tendon exam: Present: no vascular compromise. Absent: pallor Back exam: Present: normal inspection, full ROM, CVA tenderness (L). Absent: CVA tenderness (R) Neurological exam: Present: alert, oriented X3, CN II-XII intact Psychiatric exam: Present: normal affect, normal mood Skin exam: Present: warm, dry, intact, normal color. Absent: rash Course Vital Signs 08/11/20 08/11/20 08/11/20 10:02 10:22 10:45 Temperature 99.3 F Pulse Rate 104 H Respiratory 18 88 H 82 H Rate Blood Pressure 139/90 147/96 125/79 O2 Sat by Pulse 99 97 Oximetry Medical Decision Making - Medical Decision Making Chest x-ray shows no effusion, no pneumothorax, cardiac silhouette within normal size, underlying scoliosis noted. Troponin 0.012, hemoglobin and hematocrit 16.8, 46.4 respectively, WBC count of 9.3, lactic acid 2.2 patient given 1 L bolus normal saline, AST of 24 ALT of 31. Case discussed with Dr. Leiva, will discharge patient with follow-up to primary care doctor Dr. Guardado. - Lab Data Result diagrams: 08/11/20 11:18 08/11/20 11:18 Lab Results 08/11/20 08/11/20 08/11/20 Range/Units 11:18 11:18 11:18 WBC 9.3 (3.8-10.6) k/uL RBC 4.97 (3.80-5.40) m/uL Hgb 16.8 H (11.4-16.0) gm/dL Hct 46.4 H (34.0-46.0) % MCV 93.5 (80.0-100.0) fL MCH 33.9 (25.0-35.0) pg MCHC 36.2 (31.0-37.0) g/dL RDW 12.1 (11.5-15.5) % Plt Count 383 (150-450) k/uL MPV 6.9 Neutrophils % 57 % Lymphocytes % 35 % Monocytes % 3 % Eosinophils % 2 % Basophils % 1 % Neutrophils # 5.3 (1.3-7.7) k/uL Lymphocytes # 3.3 (1.0-4.8) k/uL Monocytes # 0.3 (0-1.0) k/uL Eosinophils # 0.2 (0-0.7) k/uL Basophils # 0.1 (0-0.2) k/uL PT 10.3 (9.0-12.0) sec INR 1.0 (<1.2) APTT 25.8 (22.0-30.0) sec D-Dimer 0.44 (<0.60) mg/L FEU Sodium 140 (137-145) mmol/L Potassium 4.5 (3.5-5.1) mmol/L Chloride 106 (98-107) mmol/L Carbon Dioxide 22 (22-30) mmol/L Anion Gap 12 mmol/L BUN 10 (7-17) mg/dL Creatinine 0.77 (0.52-1.04) mg/dL Est GFR (CKD-EPI)AfAm >90 (>60 ml/min/1.73 sqM) Est GFR (CKD-EPI)NonAf >90 (>60 ml/min/1.73 sqM) Glucose 130 H (74-99) mg/dL Plasma Lactic Acid Chaitanya (0.7-2.0) mmol/L Calcium 9.8 (8.4-10.2) mg/dL Magnesium 2.0 (1.6-2.3) mg/dL Total Bilirubin 0.5 (0.2-1.3) mg/dL AST 24 (14-36) U/L ALT 31 (4-34) U/L Alkaline Phosphatase 99 (38-126) U/L Troponin I (0.000-0.034) ng/mL Total Protein 8.5 H (6.3-8.2) g/dL Albumin 4.7 (3.5-5.0) g/dL Urine HCG, Qual (Not Detectd) 08/11/20 08/11/20 08/11/20 Range/Units 11:18 11:18 11:18 WBC (3.8-10.6) k/uL RBC (3.80-5.40) m/uL Hgb (11.4-16.0) gm/dL Hct (34.0-46.0) % MCV (80.0-100.0) fL MCH (25.0-35.0) pg MCHC (31.0-37.0) g/dL RDW (11.5-15.5) % Plt Count (150-450) k/uL MPV Neutrophils % % Lymphocytes % % Monocytes % % Eosinophils % % Basophils % % Neutrophils # (1.3-7.7) k/uL Lymphocytes # (1.0-4.8) k/uL Monocytes # (0-1.0) k/uL Eosinophils # (0-0.7) k/uL Basophils # (0-0.2) k/uL PT (9.0-12.0) sec INR (<1.2) APTT (22.0-30.0) sec D-Dimer (<0.60) mg/L FEU Sodium (137-145) mmol/L Potassium (3.5-5.1) mmol/L Chloride (98-107) mmol/L Carbon Dioxide (22-30) mmol/L Anion Gap mmol/L BUN (7-17) mg/dL Creatinine (0.52-1.04) mg/dL Est GFR (CKD-EPI)AfAm (>60 ml/min/1.73 sqM) Est GFR (CKD-EPI)NonAf (>60 ml/min/1.73 sqM) Glucose (74-99) mg/dL Plasma Lactic Acid Chaitanya 2.2 H* (0.7-2.0) mmol/L Calcium (8.4-10.2) mg/dL Magnesium (1.6-2.3) mg/dL Total Bilirubin (0.2-1.3) mg/dL AST (14-36) U/L ALT (4-34) U/L Alkaline Phosphatase (38-126) U/L Troponin I <0.012 (0.000-0.034) ng/mL Total Protein (6.3-8.2) g/dL Albumin (3.5-5.0) g/dL Urine HCG, Qual Not Detected (Not Detectd) - EKG Data EKG shows normal: sinus rhythm (Ventricular rate 90, VT interval 0.14, QRS 0.84, QTC 0.452) Disposition Clinical Impression: Epigastric pain, Shortness of breath Disposition: HOME SELF-CARE Condition: Fair Instructions (If sedation given, give patient instructions): Abdominal Pain (ED), Shortness of Breath (ED) Additional Instructions: Follow-up with a primary care doctor this week, return to emergency room for worsening symptoms Is patient prescribed a controlled substance at d/c from ED?: No Referrals: Reji Guardado MD [Primary Care Provider] - 1-2 days Lupe Soto MD [STAFF PHYSICIAN] - 1-2 days Time of Disposition: 13:19
[2020-08-11] MEDS ORDERED: NICOTINE 21MG/24HR PATCH TRANSDERM STA (11:31)
--- NOTE | 2020-08-11 11:36 | XR ---
EXAMINATION TYPE: XR chest 2V DATE OF EXAM: 08/11/2020 COMPARISON: Chest x-ray July 05, 2011 HISTORY: Difficulty breathing. TECHNIQUE: Frontal and lateral views of the chest are obtained. FINDINGS: There is no suspicious focal air space opacity, pleural effusion, or pneumothorax seen. T he cardiac silhouette size remains within normal limits. Underlying scoliotic curvature redemonstrate d. IMPRESSION: No acute cardiopulmonary process. No significant change from prior.
[2020-08-11 11:38] LABS: Basophils # (A) 0.1 k/uL (0-0.2); Basophils % (A) 1 %; Eosinophils # (A) 0.2 k/uL (0-0.7); Eosinophils % (A) 2 %; HCT 46.4 % (34.0-46.0); HGB 16.8 gm/dL (11.4-16.0); Lymphocytes # (A) 3.3 k/uL (1.0-4.8); Lymphocytes % (A) 35 %; MCH 33.9 pg (25.0-35.0); MCHC 36.2 g/dL (31.0-37.0); MCV 93.5 fL (80.0-100.0); Mean Platelet Volume 6.9; Monocytes # (A) 0.3 k/uL (0-1.0); Monocytes % (A) 3 %; Neutrophils # (A) 5.3 k/uL (1.3-7.7); Neutrophils % (A) 57 %; Platelet Count 383 k/uL (150-450); RBC 4.97 m/uL (3.80-5.40); RDW 12.1 % (11.5-15.5); WBC 9.3 k/uL (3.8-10.6)
[2020-08-11 11:53] LABS: ALT 31 U/L (4-34); AST 24 U/L (14-36); African American GFR (CKD) >90 (>60 ml/min/1.73 sqM); Albumin 4.7 g/dL (3.5-5.0); Alkaline Phosphatase 99 U/L (38-126); Anion Gap 12 mmol/L; Blood Urea Nitrogen 10 mg/dL (7-17); Calcium 9.8 mg/dL (8.4-10.2); Carbon Dioxide 22 mmol/L (22-30); Chloride 106 mmol/L (98-107); Glucose 130 mg/dL (74-99); Non-African American GFR(CKD) >90 (>60 ml/min/1.73 sqM); Potassium 4.5 mmol/L (3.5-5.1); Sodium 140 mmol/L (137-145); Total Bilirubin 0.5 mg/dL (0.2-1.3); Total Protein 8.5 g/dL (6.3-8.2)
[2020-08-11 12:00] LABS: D-Dimer 0.44 mg/L FEU (<0.60); Partial Thromboplastin Time 25.8 sec (22.0-30.0); Prothrombin Time 10.3 sec (9.0-12.0)
[2020-08-11 13:54] VITALS: BP 125/82; PULSE 18; RESP 73; TEMP 99.1
== END 2020-08-11 13:54 | disposition home or self-care (01) ==
LOC: EC 09:59
DX: R06.02 Shortness of breath (principal); R10.13 Epigastric pain; K21.9 Gastro-esophageal reflux disease without esophagitis; F17.200 Nicotine dependence, unspecified, uncomplicated; Z79.51 Long term (current) use of inhaled steroids; Z79.899 Other long term (current) drug therapy; Z88.1 Allergy status to other antibiotic agents; Z91.018 Allergy to other foods
CPT/HCPCS: 36415; 93005; 85379; 80053; 83605; 83735; 84484; 85025; 85610; 85730; 81025; 71046; 99285; 96360; S4990

== ENCOUNTER → 2021-02-09 | Outpatient (CLI) | payer OTHER ==
--- NOTE | 2021-02-09 08:56 | US ---
EXAMINATION TYPE: US gallbladder DATE OF EXAM: 02/09/2021 COMPARISON: NONE CLINICAL HISTORY: R10.13 Epigastric pain. epigastric pain and nausea ongoing EXAM MEASUREMENTS: Liver Length: 15.0 cm Gallbladder Wall: 0.4 cm CBD: 0.6 cm Right Kidney: 10.8 x 4.4 x 5.5 cm Pancreas: wnl Liver: There is an echogenic appearance present. No evident mass. Gallbladder: contracted in appearance with thickened wall, possible adenomyomatosis noted along with internal echoes in GB Evidence for sonographic Paz's sign: No CBD: slightly dilated with no focal area of obstruction noted Right Kidney: wnl IMPRESSION: Correlate for possible hepatic steatosis, hepatocellular disease. The gallbladder is cont racted. Borderline common bile duct dilation, consider additional imaging, gastrointestinal consult. Limited exam.
== END | disposition home or self-care (01) ==
LOC: RADUSWWP 08:08
PROVIDERS: ATTEND Family Medicine
DX: K76.89 Other specified diseases of liver (principal); K82.8 Other specified diseases of gallbladder
CPT/HCPCS: 76705

== ENCOUNTER 2021-04-15 09:37 | Day surgery (SDC) | payer OTHER ==
[2021-04-13 14:39] VITALS: BMI 27.4
[~2021-04-15 09:37] MED LIST: LACTATED RINGERS 1,000 ML IV SCH; LIDOCAINE 1% (10MG/ML) FOR IV START INTRADERMA PRN
[2021-04-15 10:13] VITALS: RESP 16; TEMP 97.3
[2021-04-15] MEDS ORDERED: PROPOFOL 10 MG/ML 20 ML VIAL IV ONE (10:42)
[2021-04-15] MEDS ORDERED: LIDOCAINE 1% INJ 10MG/ML (20 ML MDV) ONE (10:42)
--- NOTE | 2021-04-15 11:03 | P.PCN ---
Date of Procedure: 04/15/21 Procedure(s) Performed: Brief history: Patient is a pleasant 51-year-old white female scheduled for an elective upper endoscopy as well as colonoscopy as a part of evaluation of the gastric pain and change in bowel habits for the last 6 months duration. She was recently started on Protonix 40 mg daily with some improvement in symptoms. Procedure performed: Esophagogastroduodenoscopy with biopsy Colonoscopy with biopsy Preoperative diagnosis: Epigastric pain Change in bowel habits Anesthesia: MAC Procedure: After informed consent was obtained from the patient was brought into the endoscopy unit and IV sedation was administered by anesthesia under continuous monitoring. Initially upper endoscopy was done. The Olympus GF 160 video endoscope was inserted inserted into the mouth and esophagus intubated without any difficulty and was gradually advanced into the stomach and duodenum and carefully examined. The bulb and second part of the duodenum appeared normal. Biopsies were done from the duodenum to rule out celiac disease. The scope was then withdrawn into the stomach adequately insufflated with air and upon careful examination the antrum mild gastritis and biopsies were done from this area. The body, cardia and fundus appeared normal. The scope was then withdrawn into the esophagus. The GE junction was located at 40 cm to the incisors. It appeared regular with no erythema erosions or ulcerations. Rest of the esophagus appeared normal. Patient tolerated the procedure well. At this time the patient continued to remain sedation. Initial digital rectal examination was normal. Olympus CF 160 video colonoscope was then inserted into the rectum and gradually advanced to the cecum without any difficulty. Careful examination was performed as the scope was gradually being withdrawn. The prep was excellent. The cecum, ascending colon, transverse colon, descending colon, sigmoid colon and rectum appeared normal. random biopsies were done from ascending and descending colon to rule out microscopic/collagenous colitis. Scattered sigmoid diverticulosis seen. Retroflexion was performed in the rectum and no lesions were noted. Patient tolerated the procedure well. Impression: 1. Upper endoscopy revealed mild antral gastritis but no evidence of esophagitis or peptic ulcer disease 2. Colonoscopy was within normal limits with no evidence of colitis or colorectal neoplasia Recommendations: Findings of this examination were discussed with the patient as well as her family. She was advised to follow with the biopsy results. She will continue with Protonix 40 mg daily and follow antireflux measures. She'll be seen in office in 6 weeks.
[2021-04-15 11:25] VITALS: BP 99/60; PULSE 65
== END 2021-04-15 11:48 | disposition home or self-care (01) ==
LOC: ORWHC2ENDO 09:37
PROVIDERS: ATTEND Internal Medicine Gastroenterology
DX: K29.70 Gastritis, unspecified, without bleeding (principal); R19.4 Change in bowel habit
CPT/HCPCS: 45380; 43239; 81025; 88305; J2001; J2704

== ENCOUNTER → 2021-08-25 | Outpatient (CLI) | payer OTHER ==
--- NOTE | 2021-08-25 17:34 | CT ---
EXAMINATION TYPE: CT ChestAbdPelvis w con CT DLP: 727.90 mGycm, Automated exposure control for dose reduction was used. DATE OF EXAM: 08/25/2021 9:27 AM COMPARISON: CT pelvis 04/09/2018, ultrasound gallbladder 02/09/2021. CLINICAL INDICATION:Female, 51 years old with history of M54.6 pain thoracic spine, Back pain, Abdomi nal pain, patient reports upper abdominal pain radiating to back. Technique: Multiple axial images of the chest, abdomen, and pelvis were obtained following the intrav enous administration of 100 mL Isovue-300. Two-dimensional coronal and sagittal reconstructions were obtained. Findings: CHEST: LUNGS/ PLEURA: Mild to moderate centrilobular emphysema changes most pronounced in the lung apices. T here is streaky atelectasis seen within the lingula. There is a intrafissural lymph node seen in the left major fissure. AIRWAY: Patent and unremarkable. HEART: Size within normal limits. MEDIASTINUM: No gross evidence of adenopathy. VASCULATURE: No aortic aneurysm. MUSCULOSKELETAL: No acute osseous abnormalities. SOFT TISSUES/LYMPH NODES: Unremarkable. LOWER NECK: No significant findings. ABDOMEN: ABDOMEN LIVER: Diffusely hypoattenuating parenchyma. GALLBLADDER AND BILE DUCTS: Unremarkable. PANCREAS: Unremarkable. SPLEEN: Unremarkable. ADRENAL GLANDS: Unremarkable. KIDNEYS AND URETERS: No evidence of hydronephrosis or renal calculus. The ureters are unremarkable. PELVIS BLADDER: Unremarkable REPRODUCTIVE: There is hypoattenuating fluid within the endometrial canal and within the vagina. ABDOMEN & PELVIS STOMACH AND BOWEL: Stomach and duodenum are unremarkable. Scattered diverticula are noted throughout the colon. No evidence of bowel obstruction. PERITONEUM: No evidence of pneumoperitoneum or free fluid. VASCULATURE: No evidence of aortic aneurysm. Scattered atherosclerosis of the arterial vasculature. MUSCULOSKELETAL: No acute osseous abnormalities. Right and left femoral head and sacrum bony islands. Mild scoliosis changes to the visualized spine. Multilevel disc bulging most pronounced throughout t he lower spine. LYMPH NODES: No gross evidence for lymphadenopathy. SOFT TISSUE/ABDOMINAL WALL: Unremarkable IMPRESSION: 1. No evidence for aortic aneurysm or acute aortic syndrome. Mild atherosclerosis of the arterial vas culature. No evidence for acute process in the chest, abdomen or pelvis. 2. Moderate stool in the colon. 3. Colonic diverticulosis. 4. Emphysema changes. 5. Findings again suggesting hepatic steatosis.
== END | disposition home or self-care (01) ==
LOC: RADCTMAIN 06:33
PROVIDERS: ATTEND Family Medicine
DX: K57.30 Diverticulosis of large intestine without perforation or abscess without bleeding (principal); J43.2 Centrilobular emphysema; R19.5 Other fecal abnormalities; I70.90 Unspecified atherosclerosis
CPT/HCPCS: 71260; 74177; Q9967

== ENCOUNTER 2022-10-24 13:04 | Emergency (ER) | payer OTHER ==
[2022-10-24 13:20] VITALS: BP 140/83; RESP 18
[2022-10-24 13:34] VITALS: PULSE 72; TEMP 98.3
[2022-10-24] MEDS ORDERED: SODIUM CHLORIDE 0.9% 1,000 ML IV STA (13:43)
--- NOTE | 2022-10-24 13:53 | ED ---
General Adult HPI - General Chief complaint: Fever Stated complaint: Fever, Upper Back Pain Time Seen by Provider: 10/24/22 13:26 Source: patient, RN notes reviewed, old records reviewed Mode of arrival: ambulatory - History of Present Illness Initial comments: Patient is a 52-year-old female presents emergency Department complaining of subjective fevers. Has a history of COPD, GERD. Has a history of chronic back pain. States she was told she had "lymph on her left lung"previously and is unknown if this is related to her symptoms. She still this one time ago. Has chronic back pain which is unchanged as well as chronic abdominal pain which is unchanged and is present every day for her for years. Denies any nausea or vomiting or diarrhea. Did not actually take her temperature at home. Endorses chills as well. States she has increased fatigue. No coughing. No rhinorrhea. No sore throat. No chest pain. No GI symptoms. No urinary complaints. Presents for further evaluation at this time over concern for possible infection. Patient is tolerating oral intake. No concern for dehydration. Last took Tylenol approximately 3 hours prior to arrival. - Related Data Home Medications Medication Instructions Recorded Confirmed Cetirizine HCl [Zyrtec] 10 mg PO DAILY 04/09/18 10/24/22 Previous Rx's Medication Instructions Recorded Albuterol Inhaler [Ventolin Hfa 1 puff INHALATION TID #8 gm 10/24/22 Inhaler] Allergies Allergy/AdvReac Type Severity Reaction Status Date / Time erythromycin base Allergy Severe Rash/Hives Verified 10/24/22 14:23 avocado AdvReac Rash/Hives Verified 10/24/22 14:23 Review of Systems ROS Statement: Those systems with pertinent positive or pertinent negative responses have been documented in the HPI. Review of Systems: CONST: Endorses subjective fever, fatigue EYES: Denies blurry vision ENT: Denies nasal congestion C/V: Denies Chest pain RESP: Denies shortness of breath GI: Denies abdominal pain : Denies dysuria SKIN: Denies rash. MSK: Denies joint pain. NEURO: Denies headache ROS Other: All systems not noted in ROS Statement are negative. Past Medical History Past Medical History: COPD, GERD/Reflux, Skin Disorder Additional Past Medical History / Comment(s): Eczema. "Smoker's cough." History of Any Multi-Drug Resistant Organisms: None Reported Past Surgical History: Tubal Ligation Additional Past Surgical History / Comment(s): Perianal abscess I&D 2017 and 2018. Past Anesthesia/Blood Transfusion Reactions: Motion Sickness, Postoperative Nausea & Vomiting (PONV) Past Psychological History: No Psychological Hx Reported Smoking Status: Current every day smoker Past Alcohol Use History: Rare Past Drug Use History: Marijuana - Past Family History Mother Family Medical History: Hypertension Father History Unknown: Yes Additional Family Medical History / Comment(s): Macular Degeneration. General Exam - General Exam Comments Initial Comments: General: Appears in no acute distress. Afebrile. HEAD: Normal with no signs of head trauma. EYES: PERRLA, EOMI, conjunctiva normal, no discharge. ENT: Hearing grossly intact, normal oropharynx. RESPIRATORY: Clear breath sounds bilaterally. No wheezes, rales, or rhonchi. C/V: Regular rate and rhythm. S1 and S2 auscultated, peripheral pulses 2+ and intact throughout ABD: Abd is soft, nontender, nondistended EXT: Normal range of motion, no obvious deformity SKIN: No rashes or lesions observed on exposed skin. NEURO: Alert and oriented 4. No focal deficits. Course Vital Signs 10/24/22 10/24/22 13:14 13:26 Temperature 97.9 F 98.3 F Pulse Rate 80 72 Respiratory 18 18 Rate Blood Pressure 140/83 O2 Sat by Pulse 99 Oximetry Medical Decision Making - Medical Decision Making Was pt. sent in by a medical professional or institution (, PA, ACCOUNTING SUPERVISOR, urgent care, hospital, or jail...) When possible be specific @ -No Did you speak to anyone other than the patient for history (EMS, parent, family, police, friend...)? What history was obtained from this source @ -No Did you review nursing and triage notes (agree or disagree)? Why? @ -I reviewed and agree with nursing and triage notes Were old charts reviewed (outside hosp., previous admission, EMS record, old EKG, old radiological studies, urgent care reports/EKG's, jail records)? Report findings @ -No old charts were reviewed Differential Diagnosis (chest pain, altered mental status, abdominal pain women, abdominal pain men, vaginal bleeding, weakness, fever, dyspnea, syncope, headache, dizziness, GI bleed, back pain, seizure, CVA, palpatations, mental health, musculoskeletal)? @ -Differential Fever: Pneumonia, viral URI, endocarditis, myocarditis, pericarditis, otitis, sinusitis, peritonsillar Abscess, retropharyngeal Abscess, epiglottitis, peritonitis, appendicitis, Kaylan cystitis, diverticulitis, hepatitis, colitis, UTI, PID, TOA, pyelonephritis, prostatitis, epididymitis, meningitis, encephalitis, pulmonary embolism, CVA, thyroid storm, pancreatitis, adrenal crisis, cavernous sinus thrombosis, this is not meant to be an all-inclusive list. EKG interpreted by me (3pts min.). @ -As above X-rays interpreted by me (1pt min.). @ -Chest x-ray reveals no obvious acute cardiopulmonary process. CT interpreted by me (1pt min.). @ -None done U/S interpreted by me (1pt. min.). @ -None done What testing was considered but not performed or refused? (CT, X-rays, U/S, labs)? Why? @ -None What meds were considered but not given or refused? Why? @ -None Did you discuss the management of the patient with other professionals (professionals i.e. , PA, ACCOUNTING SUPERVISOR, lab, RT, psych nurse, nephrology social worker, civil engineering manager, teacher, aoc plans intelligence officer, case filler)? Give summary @ -No Was smoking cessation discussed for >3mins.? @ -No Was critical care preformed (if so, how long)? @ -No Were there social determinants of health that impacted care today? How? (Homelessness, low income, unemployed, alcoholism, drug addiction, t ransportation, low edu. Level, literacy, decrease access to med. care, [facility], rehab)? @ -No Was there de-escalation of care discussed even if they declined (Discuss DNR or withdrawal of care, Hospice)? DNR status @ -No What co-morbidities impacted this encounter? (DM, HTN, Smoking, COPD, CAD, Cancer, CVA, ARF, Chemo, Hep., AIDS, mental health diagnosis, sleep apnea, morbid obesity)? @ -None Was patient admitted / discharged? Hospital course, mention meds given and route, prescriptions, significant lab abnormalities, going to OR and other pertinent info. @ -Based on the patient's presentation and physical exam, presents with subjective fevers but currently patient is afebrile. Did recently take Tylenol. His no other acute complaints at this time. No obvious focal area infection. We'll obtain screening labs, as well as an EKG. Only significant complaints are chronic epigastric abdominal discomfort and chronic back pain which is unchanged from her baseline. She'll be given a 1 L fluid bolus. Vital signs are within acceptable limits. We will obtain viral swabs as well as strep swab. She was in agreement this plan. Patient's chest x-ray reveals no obvious acute cardio pulmonary process. EKG shows no signs of acute ischemia. Labs are remarkable for a positive Covid test. Urinalysis is contaminated. On reevaluation, I discussed results of the patient. She expresses understanding. Discussed she should attempt to isolate for at least 5 days following onset of symptoms, and therefore that is an additional 2 days, isolating until at least October 27. I also recommended that she obtain a pulse oximeter monitor fraction. Patient isn't on an albuterol inhaler at home. However I do not believe that she requires any additional treatment at this time. We will provide her with a single dose of oral steroid. She was in agreement this plan. Recommended isolation until 24 hours fever free after 5 days as well. Strict return precautions discussed including worsening hypoxia or symptoms. Vital signs remained within acceptable limits. I instructed the patient to follow up with their PCP in the next 1-3 days. I explained that the patient should return to the emergency department if they experience any worsening symptoms. Strict return precautions were discussed with the patient. The patient expressed understanding of these instructions. I answered all questions that the patient had. The patient was discharged home in good condition with their prescriptions and follow up information. Undiagnosed new problem with uncertain prognosis? @ -No Drug Therapy requiring intensive monitoring for toxicity (Heparin, Nitro, Insulin, Cardizem)? @ -No Were any procedures done? @ -No Diagnosis/symptom? @ -Covid 19 infection Acute, or Chronic, or Acute on Chronic? @ -Acute Uncomplicated (without systemic symptoms) or Complicated (systemic symptoms)? @ -Complicated Side effects of treatment? @ -none Exacerbation, Progression, or Severe Exacerbation] @ -no Poses a threat to life or bodily function? @ -no - Lab Data Result diagrams: 10/24/22 13:59 10/24/22 13:59 Lab Results 10/24/22 10/24/22 10/24/22 Range/Units 13:59 13:59 13:59 WBC 4.2 (3.8-10.6) k/uL RBC 4.66 (3.80-5.40) m/uL Hgb 15.2 (11.4-16.0) gm/dL Hct 45.3 (34.0-46.0) % MCV 97.3 (80.0-100.0) fL MCH 32.6 (25.0-35.0) pg MCHC 33.5 (31.0-37.0) g/dL RDW 12.0 (11.5-15.5) % Plt Count 234 (150-450) k/uL MPV 7.2 Neutrophils % 49 % Lymphocytes % 40 % Monocytes % 7 % Eosinophils % 0 % Basophils % 1 % Neutrophils # 2.1 (1.3-7.7) k/uL Lymphocytes # 1.7 (1.0-4.8) k/uL Monocytes # 0.3 (0-1.0) k/uL Eosinophils # 0.0 (0-0.7) k/uL Basophils # 0.0 (0-0.2) k/uL Sodium 137 (137-145) mmol/L Potassium 4.1 (3.5-5.1) mmol/L Chloride 106 (98-107) mmol/L Carbon Dioxide 25 (22-30) mmol/L Anion Gap 6 mmol/L BUN 8 (7-17) mg/dL Creatinine 0.78 (0.52-1.04) mg/dL Est GFR (CKD-EPI)AfAm >90 (>60 ml/min/1.73 sqM) Est GFR (CKD-EPI)NonAf 89 (>60 ml/min/1.73 sqM) Glucose 122 H (74-99) mg/dL Calcium 8.8 (8.4-10.2) mg/dL Total Bilirubin 0.2 (0.2-1.3) mg/dL AST 32 (14-36) U/L ALT 38 H (4-34) U/L Alkaline Phosphatase 73 (38-126) U/L Total Protein 7.3 (6.3-8.2) g/dL Albumin 4.0 (3.5-5.0) g/dL Lipase 103 (23-300) U/L Urine Color Urine Appearance (Clear) Urine pH (5.0-8.0) Ur Specific [place] (1.001-1.035) Urine Protein (Negative) Urine Glucose (UA) (Negative) Urine Ketones (Negative) Urine Blood (Negative) Urine Nitrite (Negative) Urine Bilirubin (Negative) Urine Urobilinogen (<2.0) mg/dL Ur Leukocyte Esterase (Negative) Urine RBC (0-5) /hpf Urine WBC (0-5) /hpf Ur Squamous Epith Cells (0-4) /hpf Urine Bacteria (None) /hpf Urine Mucus (None) /hpf Influenza Type A (PCR) (Not Detectd) Influenza Type B (PCR) (Not Detectd) RSV (PCR) (Not Detectd) SARS-CoV-2 (PCR) (Not Detectd) Group A Strep (PCR) NOT DETECTED (Not Detectd) 10/24/22 10/24/22 Range/Units 13:59 15:04 WBC (3.8-10.6) k/uL RBC (3.80-5.40) m/uL Hgb (11.4-16.0) gm/dL Hct (34.0-46.0) % MCV (80.0-100.0) fL MCH (25.0-35.0) pg MCHC (31.0-37.0) g/dL RDW (11.5-15.5) % Plt Count (150-450) k/uL MPV Neutrophils % % Lymphocytes % % Monocytes % % Eosinophils % % Basophils % % Neutrophils # (1.3-7.7) k/uL Lymphocytes # (1.0-4.8) k/uL Monocytes # (0-1.0) k/uL Eosinophils # (0-0.7) k/uL Basophils # (0-0.2) k/uL Sodium (137-145) mmol/L Potassium (3.5-5.1) mmol/L Chloride (98-107) mmol/L Carbon Dioxide (22-30) mmol/L Anion Gap mmol/L BUN (7-17) mg/dL Creatinine (0.52-1.04) mg/dL Est GFR (CKD-EPI)AfAm (>60 ml/min/1.73 sqM) Est GFR (CKD-EPI)NonAf (>60 ml/min/1.73 sqM) Glucose (74-99) mg/dL Calcium (8.4-10.2) mg/dL Total Bilirubin (0.2-1.3) mg/dL AST (14-36) U/L ALT (4-34) U/L Alkaline Phosphatase (38-126) U/L Total Protein (6.3-8.2) g/dL Albumin (3.5-5.0) g/dL Lipase (23-300) U/L Urine Color Yellow Urine Appearance Cloudy H (Clear) Urine pH 6.0 (5.0-8.0) Ur Specific [place] 1.016 (1.001-1.035) Urine Protein Trace H (Negative) Urine Glucose (UA) Negative (Negative) Urine Ketones Negative (Negative) Urine Blood Moderate H (Negative) Urine Nitrite Negative (Negative) Urine Bilirubin Negative (Negative) Urine Urobilinogen <2.0 (<2.0) mg/dL Ur Leukocyte Esterase Negative (Negative) Urine RBC 7 H (0-5) /hpf Urine WBC 2 (0-5) /hpf Ur Squamous Epith Cells 6 H (0-4) /hpf Urine Bacteria Occasional H (None) /hpf Urine Mucus Many H (None) /hpf Influenza Type A (PCR) Not Detected (Not Detectd) Influenza Type B (PCR) Not Detected (Not Detectd) RSV (PCR) Not Detected (Not Detectd) SARS-CoV-2 (PCR) Detected A (Not Detectd) Group A Strep (PCR) (Not Detectd) - EKG Data -: EKG Interpreted by Me EKG Comments: 12-lead Electrocardiogram Interpretation Note EKG was reviewed and interpreted by myself. 12-lead ECG performed at 1359 is interpreted by me as revealing normal sinus rhythm at a rate of 63 beats per minute. [place] is normal. NE interval is 135 ms, QRS duration is 93 ms, QTc is 409 ms.. There were no ST or T wave abnormalities to suggest myocardial ischemia or injury. R wave progression across the precordium was satisfactory. By my interpretation this EKG is non-diagnostic for acute ischemia. Disposition Clinical Impression: COVID-19 virus infection Disposition: HOME SELF-CARE Condition: Good Instructions (If sedation given, give patient instructions): COVID-19 (Coronavirus Disease 2019) (ED) Additional Instructions: obtain pulse oximeter to monitor oxygen levels. return if oxygen is consistently less than 90-92%. Isolate until 1 day fever free, and isolate until at least 10/27/22.return with any worsening symptoms. Prescriptions: Albuterol Inhaler [Ventolin Hfa Inhaler] 1 puff INHALATION TID #8 gm Is patient prescribed a controlled substance at d/c from ED?: No Referrals: None,Stated [Primary Care Provider] - 1-2 days Forms: Area PCPs Time of Disposition: 15:29
[2022-10-24 14:22] LABS: Basophils % (A) 1 %; Eosinophils % (A) 0 %; HCT 45.3 % (34.0-46.0); HGB 15.2 gm/dL (11.4-16.0); Lymphocytes # (A) 1.7 k/uL (1.0-4.8); Lymphocytes % (A) 40 %; MCH 32.6 pg (25.0-35.0); MCHC 33.5 g/dL (31.0-37.0); MCV 97.3 fL (80.0-100.0); Mean Platelet Volume 7.2; Monocytes # (A) 0.3 k/uL (0-1.0); Monocytes % (A) 7 %; Neutrophils # (A) 2.1 k/uL (1.3-7.7); Neutrophils % (A) 49 %; Platelet Count 234 k/uL (150-450); RBC 4.66 m/uL (3.80-5.40); WBC 4.2 k/uL (3.8-10.6)
[2022-10-24 14:31] LABS: ALT 38 U/L (4-34); AST 32 U/L (14-36); African American GFR (CKD) >90 (>60 ml/min/1.73 sqM); Alkaline Phosphatase 73 U/L (38-126); Anion Gap 6 mmol/L; Blood Urea Nitrogen 8 mg/dL (7-17); Calcium 8.8 mg/dL (8.4-10.2); Carbon Dioxide 25 mmol/L (22-30); Chloride 106 mmol/L (98-107); Glucose 122 mg/dL (74-99); Lipase 103 U/L (23-300); Non-African American GFR(CKD) 89 (>60 ml/min/1.73 sqM); Potassium 4.1 mmol/L (3.5-5.1); Sodium 137 mmol/L (137-145); Total Bilirubin 0.2 mg/dL (0.2-1.3); Total Protein 7.3 g/dL (6.3-8.2)
--- NOTE | 2022-10-24 14:52 | XR ---
EXAMINATION TYPE: XR chest 2V DATE OF EXAM: 10/24/2022 COMPARISON: 08/11/20 HISTORY: Shortness of breath TECHNIQUE: Frontal and lateral views of the chest are obtained. FINDINGS: Scattered senescent parenchymal changes noted. Hyperinflation compatible with COPD. No evidence for infiltrate. No evidence for atelectasis. Heart size is stable. Mediastinal structures are stable and grossly unremarkable. No evidence for hilar prominence. Degenerative changes dorsal spine. IMPRESSION: 1. No evidence for acute pulmonary disease.
[2022-10-24 15:30] LABS: Appearance,Urine Cloudy (Clear); Bacteria,Urine Occasional /hpf; Bilirubin,Urine Negative (Negative); Blood,Urine Moderate (Negative); Color,Urine Yellow; Glucose,Urine (UA) Negative (Negative); Ketones,Urine Negative (Negative); Leukocyte Esterase,Urine Negative (Negative); Mucus,Urine Many /hpf; Nitrite,Urine Negative (Negative); Protein,Urine Trace (Negative); RBC,Urine 7 /hpf (0-5); Specific Gravity,Urine 1.016 (1.001-1.035); Squamous Epithelial Cell,Urine 6 /hpf (0-4); Urobilinogen,Urine <2.0 mg/dL (<2.0); WBC,Urine 2 /hpf (0-5)
[2022-10-24] MEDS ORDERED: dexAMETHasone 4 MG TAB PO STA (15:33)
== END 2022-10-24 15:59 | disposition home or self-care (01) ==
LOC: EC 13:04
DX: U07.1 COVID-19 (principal); J44.9 Chronic obstructive pulmonary disease, unspecified; F17.200 Nicotine dependence, unspecified, uncomplicated; F12.90 Cannabis use, unspecified, uncomplicated; Z88.1 Allergy status to other antibiotic agents; Z91.018 Allergy to other foods
CPT/HCPCS: 36415; 93005; 87651; 80053; 83690; 85025; 81001; 87636; 71046; 99284; 96360; J8540

== ENCOUNTER → 2023-06-23 | Outpatient (CLI) | payer OTHER ==
--- NOTE | 2023-06-23 13:13 | US ---
EXAMINATION TYPE: US pelvis complete transvag DATE OF EXAM: 06/23/2023 COMPARISON: None CLINICAL INDICATION: Female, 53 years old with history of N93.9 ABNORMAL UTERINE AND VAGINAL BLEEDING , UNSPEC; Pt states vaginal bleeding x 21 days, now having spotting TECHNIQUE: Transvaginal (TV) and Transabdominal (TA) . Transabdominal sonographic images of the pel vis were acquired. Transvaginal sonographic images were medically necessary to better assess the fol lowing anatomy: Ordered by physician EXAM MEASUREMENTS: Uterus: 9.5 x 5.5 x 7.3 cm Endometrial Stripe: 1.5 cm Right Ovary: 2.9 x 2.1 x 1.9 cm 1. Uterus: Anteverted. Heterogeneous myometrium, multiple Nabothian cysts in cervix 2. Endometrium: Heterogeneous endometrium. Echogenic area within measuring 0.9 x 0.5 x 0.5 cm 3. Right Ovary: Simple cyst measuring 1.6 x 1.6 x 1.8 cm 4. Left Ovary: Obscured by overlying bowel gas 5. Bilateral Adnexa: wnl 6. Posterior cul-de-sac: wnl IMPRESSION: 1. Heterogeneous thickening of the endometrium up to 1.5 cm. Correlate for menopausal status. If post menopausal, this would be excessive thickening. Differential considerations would include endometrial hyperplasia, underlying polyps, and endometrial carcinoma. Clinically correlate. Consider CONE WINDER stephanie luation 2. A 1.8 cm simple appearing cyst of the right ovary. Attention on any subsequent follow-up exams.
== END | disposition home or self-care (01) ==
LOC: RADUSWWP 07:21
PROVIDERS: ATTEND Family Medicine
DX: N83.201 Unspecified ovarian cyst, right side (principal); N93.9 Abnormal uterine and vaginal bleeding, unspecified; R93.89 Abnormal findings on diagnostic imaging of other specified body structures
CPT/HCPCS: 76830; 76856

== ENCOUNTER → 2023-12-08 | Outpatient (CLI) | payer OTHER ==
--- NOTE | 2024-01-03 08:36 | MM ---
Reason for Exam: Screening (asymptomatic). Baseline mammogram. Patient History: Menarche at age 15. First Full-Term at age 19. Maternal grandmother had ovarian cancer at or over age 50. Last menstrual period: 11/03/2023 Risk Values: Carol 5 year model risk: 0.7%. NCI Lifetime model risk: 6.4%. Prior Study Comparison: Patient's first Mammogram. Tissue Density: The breasts are heterogeneously dense, which may obscure small masses. Findings: Analyzed By CAD. Right breast: There is no suspicious group of microcalcifications or new suspicious mass. Left breast: There is no suspicious group of microcalcifications or new suspicious mass. Overall Assessment: Negative, BI-RAD 1 Management: Screening Mammogram of both breasts in [address] [facility] will attempt to contact patient to return for supplemental views and ultrasound if indicated. Patient should continue monthly self-breast exams. A clinical breast exam by your physician is recommended on an annual basis. This exam should not preclude additional follow-up of suspicious palpable abnormalities. Note on Carol scores and lifetime risk: 1. A Carol score greater than 3% is considered moderate risk. If this is the case, consider specialist referral to assess eligibility for a risk reducing agent. 2. If overall lifetime risk for the development of breast cancer is 20% or higher, the patient may qualify for future screening with alternating mammogram and breast MRI. Electronically signed and approved by: Hernando Baer DO
--- NOTE | 2024-01-07 07:40 | US ---
Patient: Mary Lee Ordering Physician: Unknown, Unknown ID: [id number] Phone, Pager: Phone: N/A Pager: N/A : 1970 Age/Gender: 53Y, N/A Primary Location: N/A Procedure: US kidneys/renal an d bladder Study Date: 12/08/2023 3:16:00 PM EXAMINATION TYPE: US kidneys/renal and bladder DATE OF EXAM: 12/25/2023 COMPARISON: NONE CLINICAL INDICATION: Hematuria EXAM MEASUREMENTS: Right Kidney: 11.3 x 4.0 cm Left Kidney: 11.1 x 5.6 cm Right Kidney: No hydronephrosis or masses seen Left Kidney: No hydronephrosis or masses seen Bladder: wnl Bilateral Jets seen: Yes There is no evidence for hydronephrosis at this point in time. No nephrolithiasis is seen. No nancy s are identified. The urinary bladder is anechoic. Bilateral ureteral jets are seen. IMPRESSION: No obstructive uropathy or renal calculus.
== END | disposition home or self-care (01) ==
LOC: RADUSWWP 12:00
PROVIDERS: ATTEND Family Medicine
DX: Z12.31 Encounter for screening mammogram for malignant neoplasm of breast (principal); R92.333 Mammographic heterogeneous density, bilateral breasts; R31.9 Hematuria, unspecified; Z80.41 Family history of malignant neoplasm of ovary
CPT/HCPCS: 76770; 77063; 77067

== ENCOUNTER → 2024-01-13 | Outpatient (CLI) | payer OTHER ==
--- NOTE | 2024-01-13 12:38 | MR ---
EXAMINATION TYPE: MR thoracic spine wo con DATE OF EXAM: 01/13/2024 COMPARISON: NONE HISTORY: 53-year-old female M54.14 RADICULOPOTHY THORACIC REGION, Mid back pain x 2 years. TECHNIQUE: Multiplanar, multisequence images of the thoracic spine were obtained without IV contrast. FINDINGS: Mild heterogeneous marrow signal suggesting red marrow lesion. Minimal degenerative disc desiccation and minimal disc bulging lower thoracic spine. Vertebral body h eights are preserved and alignment is maintained. Slight accentuated lower thoracic kyphosis. There is moderate degenerative disc disease and endplate spondylosis in the visualized mid to lower c ervical spine. Possible moderate spinal canal stenosis at C5-C6 with abutment and flattening of the v entral cord. Possible moderate narrowing of the spinal canal at C6-C7 as well. The thoracic spinal cord shows normal course, caliber, and signal intensity. Thoracic spine shows no large focal disc herniation or significant spinal canal stenosis. No significant neuroforaminal narrowing is identified. Fatty matrix hemangioma within the T5 vertebral body. Alignment is maintained. Slight dextroconvexed curvature mid to lower thoracic spine. IMPRESSION: 1. Slight dextroconvex curvature mid to lower thoracic spine. Mild degenerative disc disease lower th oracic spine. Slight accentuated lower thoracic kyphosis. 2. No vertebral compression collapse or malalignment. 3. No large focal disc herniation or significant spinal canal stenosis. 4. Prominent spondylotic change mid to lower cervical spine. There may be moderate spinal canal steno ses at both C5-C6 and C6-C7.
== END | disposition home or self-care (01) ==
LOC: RADMRIMAIN 09:07
PROVIDERS: ATTEND Family Medicine
DX: M54.14 Radiculopathy, thoracic region
CPT/HCPCS: 72146

== ENCOUNTER → 2024-01-24 | Outpatient (CLI) | payer OTHER ==
--- NOTE | 2024-01-24 12:29 | CTL ---
EXAMINATION TYPE: CT Low Dose Lung DATE OF EXAM ORDERED: 01/24/2024 HISTORY: Personal tobacco use, current smoker, 25 pack-year history. Lung cancer screening CT DLP: [address] CTDI: 1.87 mGy Automated exposure control for dose reduction was used. SCREENING VISIT: First screening visit COMPARISON: CT chest abdomen and pelvis 08/25/2021 TECHNIQUE: Low dose computed tomography scan was performed through the chest at 1 mm thick sections a nd reconstructed images in multiple planes at 1 mm and [address] DIAGNOSTIC QUALITY: Satisfactory FINDINGS: Nodules: Peripheral right upper lobe 2.8 mm pulmonary nodule (series 4, image 93). 5 mm intrafissural lymph node along the left major fissure (series 4, image 146). LUNGS: COPD: Severity: Mild Fibrosis: Severity: None Lymph nodes: None Other findings: Linear atelectasis within the lingula. RIGHT PLEURAL SPACE: Effusion: None Calcification: None Thickening: None Pneumothorax: None LEFT PLEURAL SPACE: Effusion: None Calcification: None Thickening: None Pneumothorax: None HEART: Heart Size: Normal Coronary Calcification: None Pericardial Effusion: None OTHER FINDINGS: Upper abdomen: None Bony thorax: None Supraclavicular region: None Other: None IMPRESSION: Right upper lobe peripheral [address] LUNG RAD AND CT CHEST RECOMMENDATION: Lung-Rad 2 Benign Appearance or Behavior: Continue annual sc reening with LDCT in 12 months. S Modifier (other clinically significant findings): None [facility], , 01/24/2024 12:27 PM
== END | disposition home or self-care (01) ==
LOC: RADCTMAIN 11:35
PROVIDERS: ATTEND Family Medicine
DX: Z12.2 Encounter for screening for malignant neoplasm of respiratory organs
CPT/HCPCS: 71271

== ENCOUNTER 2024-08-28 16:15 | Emergency (ER) | payer OTHER ==
[2024-08-28 16:19] VITALS: TEMP 98.2
--- NOTE | 2024-08-28 17:13 | ED ---
Abdominal Pain HPI - General Chief Complaint: Abdominal Pain Stated Complaint: L sided flank pain Time Seen by Provider: 08/28/24 17:04 Source: patient, RN notes reviewed, old records reviewed Limitations: no limitations - History of Present Illness Initial Comments: This is a 54-year-old female this patient presents today for evaluation of back pain thoracic back pain chronic back pain patient's pain has been going on for months it was worse today and patient was concerned over the worsening of her back pain. Patient presents today for control of this pain she states she has had every test that her primary care can think of and her pain just comes and goes and it was worse tonight, no other complaints no new issues no fevers no trauma MD Complaint: other (Pain back pain thoracic back pain) -: days(s) Location: L flank, R flank, bilateral flank Radiation: back Migration to: bilateral flank Severity: severe Severity scale (1-10): 8 Quality: stabbing Consistency: intermittent Improves With: nothing Worsens With: nothing Associated Symptoms: denies other symptoms Treatments Prior to Arrival: other (0) - Related Data Home Medications Medication Instructions Recorded Confirmed Cetirizine HCl [Zyrtec] 10 mg PO DAILY 04/09/18 10/24/22 Previous Rx's Medication Instructions Recorded Albuterol Inhaler [Ventolin Hfa 1 puff INHALATION TID #8 gm 10/24/22 Inhaler] Ketorolac [Toradol] 10 mg PO Q6HR #30 tab 08/28/24 Allergies Allergy/AdvReac Type Severity Reaction Status Date / Time erythromycin base Allergy Severe Rash/Hives Verified 08/28/24 16:19 avocado AdvReac Rash/Hives Verified 08/28/24 16:19 Review of Systems ROS Statement: Those systems with pertinent positive or pertinent negative responses have been documented in the HPI. ROS Other: All systems not noted in ROS Statement are negative. Past Medical History Past Medical History: COPD, GERD/Reflux, Skin Disorder Additional Past Medical History / Comment(s): Eczema. "Smoker's cough." History of Any Multi-Drug Resistant Organisms: None Reported Past Surgical History: Tubal Ligation Additional Past Surgical History / Comment(s): Perianal abscess I&D 2017 and 2018. Past Anesthesia/Blood Transfusion Reactions: Motion Sickness, Postoperative Nausea & Vomiting (PONV) Past Psychological History: No Psychological Hx Reported Smoking Status: Current every day smoker Past Alcohol Use History: Rare Past Drug Use History: Marijuana - Past Family History Mother Family Medical History: Hypertension Father History Unknown: Yes Additional Family Medical History / Comment(s): Macular Degeneration. General Exam Limitations: no limitations General appearance: alert, in no apparent distress Head exam: Present: atraumatic, normocephalic, normal inspection Eye exam: Present: normal appearance, PERRL, EOMI. Absent: scleral icterus, conjunctival injection, periorbital swelling ENT exam: Present: normal exam, mucous membranes moist Neck exam: Present: normal inspection. Absent: tenderness, meningismus, lymphadenopathy Respiratory exam: Present: normal lung sounds bilaterally. Absent: respiratory distress, wheezes, rales, rhonchi, stridor Cardiovascular Exam: Present: regular rate, normal rhythm, normal heart sounds. Absent: systolic murmur, diastolic murmur, rubs, gallop, clicks GI/Abdominal exam: Present: soft, normal bowel sounds. Absent: distended, tenderness, guarding, rebound, rigid Extremities exam: Present: normal inspection, full ROM, normal capillary refill. Absent: tenderness, pedal edema, joint swelling, calf tenderness Back exam: Present: normal inspection Neurological exam: Present: alert, oriented X3, CN II-XII intact Psychiatric exam: Present: normal affect, normal mood Skin exam: Present: warm, dry, intact, normal color. Absent: rash Course Vital Signs 08/28/24 08/28/24 16:16 18:55 Temperature 98.2 F Pulse Rate 86 84 Respiratory 18 20 Rate Blood Pressure 127/83 134/84 O2 Sat by Pulse 99 97 Oximetry - Reevaluation(s) Reevaluation #1: Medical records reviewed Reevaluation #2: Patient symptoms improved here in the ER Reevaluation #3: Patient informed of results and questions answered Reevaluation #4: Was pt. sent in by a medical professional or institution (, PA, ROPEMAN, urgent care, hospital, or retirement...) When possible be specific @ -no Did you speak to anyone other than the patient for history (EMS, parent, family, police, friend...)? What history was obtained from this source @ -no Did you review nursing and triage notes (agree or disagree)? Why? @ -agree Are old charts reviewed (outside hosp., previous admission, EMS record, old EKG, old radiological studies, urgent care reports/EKG's, retirement records)? Report findings @ -yes Differential Diagnosis (chest pain, altered mental status, abdominal pain women, abdominal pain men, vaginal bleeding, weakness, fever, dyspnea, syncope, headache, dizziness, GI bleed, back pain, seizure, CVA, palpatations, mental health, musculoskeletal)? @ -prior EKG interpreted by me (3pts min.). @ -no X-rays interpreted by me (1pt min.). @ -no CT interpreted by me (1pt min.). @ -no U/S interpreted by me (1pt. min.). @ -no What testing was considered but not performed or refused? (CT, X-rays, U/S, labs)? Why? @ -none What meds were considered but not given or refused? Why? @ -none Did you discuss the management of the patient with other professionals (professionals i.e. , PA, ROPEMAN, lab, RT, psych nurse, manager social services, advanced clinical specialist, teacher, licensed mortgage loan officer, onsite case manager)? Give summary @ -no Was smoking cessation discussed for >3mins.? @ -no Was critical care preformed (if so, how long)? @ -no Were there social determinants of health that impacted care today? How? (Homelessness, low income, unemployed, alcoholism, drug addiction, transportati on, low edu. Level, literacy, decrease access to med. care, half-way, rehab)? @ -none Was there de-escalation of care discussed even if they declined (Discuss DNR or withdrawal of care, Hospice)? DNR status @ -no What co-morbidities impacted this encounter? (DM, HTN, Smoking, COPD, CAD, Cancer, CVA, ARF, Chemo, Hep., AIDS, mental health diagnosis, sleep apnea, morbid obesity)? @ -none Was patient admitted / discharged? Hospital course, mention meds given and route, prescriptions, significant lab abnormalities, going to OR and other pertinent info. @ - 54 female to ER with flank pain back pain chronic been going on for months with multiple evaluations. No lab abnormalities the pain is well-controlled here in the ER patient will continue outpatient follow-up pain control Discharge Undiagnosed new problem with uncertain prognosis? @ -no Drug Therapy requiring intensive monitoring for toxicity (Heparin, Nitro, Insulin, Cardizem)? @ -no Were any procedures done? @ -no Diagnosis/symptom? @ -Thoracic back pain Acute, or Chronic, or Acute on Chronic? @ -Acute Uncomplicated (without systemic symptoms) or Complicated (systemic symptoms)? @ -Complicated Side effects of treatment? @ -no Exacerbation, Progression, or Severe Exacerbation? @ -exacerbation Poses a threat to life or bodily function? How? (Chest pain, [place], [place], pneumonia, PE, COPD, DKA, ARF, appy, cholecystitis, CVA, Diverticulitis, Homicidal, Suicidal, threat to staff... and all critical care pts) @ -yes 09/05/24 02:41 09/05/24 02:43 Reevaluation #5: Differential Abdominal Pain Women: Appendicitis, Cholecystitis, diverticulosis, ischemic bowel, pancreatitis, hepatitis, UTI, gastroenteritis, AAA, incarcerated hernia, bowel obstruction, constipation, inflammatory bowel, hepatitis, peptic ulcer disease, splenic infarction, perforated viscus, vulvitis, ovarian torsion, PID, kidney stone, placenta abruption, this is not meant to be an all-inclusive list Medical Decision Making - Medical Decision Making 54 female to ER with flank pain back pain chronic been going on for months with multiple evaluations. No lab abnormalities the pain is well-controlled here in the ER patient will continue outpatient follow-up pain control - Lab Data Result diagrams: 08/28/24 17:42 08/28/24 17:42 Lab Results 08/28/24 08/28/24 08/28/24 Range/Units 17:42 17:42 17:42 WBC 8.91 (4.50-10.00) 10*3/uL RBC 4.72 (4.10-5.20) 10*6/uL Hgb 15.7 H (12.0-15.0) g/dL Hct 44.1 (37.2-46.3) % MCV 93.4 (80.0-97.0) fL MCH 33.3 H (27.0-32.0) pg MCHC 35.6 (32.0-37.0) g/dL Plt Count 340 (140-440) 10*3/uL MPV 9.3 L (9.5-12.2) fL Immature Gran % (Auto) 0.2 % Neutrophils % 48.6 % Lymphocytes % 43.7 % Monocytes % 4.8 % Eosinophils % 1.8 % Basophils % 0.9 % Immature Gran # 0.02 (0.00-0.04) 10*3/uL Neutrophils # 4.33 (1.80-7.70) 10*3/uL Lymphocytes # 3.89 (0.90-5.00) 10*3/uL Monocytes # 0.43 (0.20-1.00) 10*3/uL Eosinophils # 0.16 (0.04-0.35) 10*3/uL Basophils # 0.08 (0.00-0.10) 10*3/uL Sodium 139 (137-145) mmol/L Potassium 4.5 (3.5-5.1) mmol/L Chloride 105 (98-107) mmol/L Carbon Dioxide 27 (22-30) mmol/L Anion Gap 7 mmol/L BUN 9 (7-17) mg/dL Creatinine 0.95 (0.52-1.04) mg/dL Est GFR (CKD-EPI)AfAm 80 (>60 ml/min/1.73 sqM) Est GFR (CKD-EPI)NonAf 70 (>60 ml/min/1.73 sqM) Glucose 146 H (74-99) mg/dL Calcium 9.7 (8.4-10.2) mg/dL Total Bilirubin 0.5 (0.2-1.3) mg/dL AST 26 (14-36) U/L ALT 38 H (4-34) U/L Alkaline Phosphatase 94 (38-126) U/L Troponin I <0.012 (0.000-0.034) ng/mL Total Protein 7.6 (6.3-8.2) g/dL Albumin 4.3 (3.5-5.0) g/dL Amylase 42 (30-110) U/L Lipase 84 (23-300) U/L Disposition Clinical Impression: Thoracic back pain Disposition: HOME SELF-CARE Condition: Good Instructions (If sedation given, give patient instructions): Chronic Back Pain (DC), Back Pain (ED) Prescriptions: Ketorolac [Toradol] 10 mg PO Q6HR #30 tab Is patient prescribed a controlled substance at d/c from ED?: No Referrals: Roc Valencia MD [Primary Care Provider] - 1-2 days Time of Disposition: 18:20
[2024-08-28] MEDS: SODIUM CHLORIDE 0.9% 1,000 ML IV ONE (17:48)
[2024-08-28] MEDS: KETOROLAC 15 MG/ML 1 ML VIAL IVP STA (17:49)
[2024-08-28 17:50] LABS: Basophils # (A) 0.08 10*3/uL (0.00-0.10); Basophils % (A) 0.9 %; Eosinophils # (A) 0.16 10*3/uL (0.04-0.35); Eosinophils % (A) 1.8 %; HCT 44.1 % (37.2-46.3); HGB 15.7 g/dL (12.0-15.0); Lymphocytes # (A) 3.89 10*3/uL (0.90-5.00); Lymphocytes % (A) 43.7 %; MCH 33.3 pg (27.0-32.0); MCHC 35.6 g/dL (32.0-37.0); MCV 93.4 fL (80.0-97.0); Mean Platelet Volume 9.3 fL (9.5-12.2); Monocytes # (A) 0.43 10*3/uL (0.20-1.00); Monocytes % (A) 4.8 %; Neutrophils # (A) 4.33 10*3/uL (1.80-7.70); Neutrophils % (A) 48.6 %; Platelet Count 340 10*3/uL (140-440); RBC 4.72 10*6/uL (4.10-5.20); RDW 11.3 % (11.5-14.5); WBC 8.91 10*3/uL (4.50-10.00)
[2024-08-28] MEDS: HYDROmorphone 2 MG/ML 1 ML SYRINGE IVP STA (17:50)
[2024-08-28 18:09] LABS: ALT 38 U/L (4-34); AST 26 U/L (14-36); African American GFR (CKD) 80 (>60 ml/min/1.73 sqM); Albumin 4.3 g/dL (3.5-5.0); Alkaline Phosphatase 94 U/L (38-126); Amylase 42 U/L (30-110); Anion Gap 7 mmol/L; Blood Urea Nitrogen 9 mg/dL (7-17); Calcium 9.7 mg/dL (8.4-10.2); Carbon Dioxide 27 mmol/L (22-30); Chloride 105 mmol/L (98-107); Glucose 146 mg/dL (74-99); Lipase 84 U/L (23-300); Non-African American GFR(CKD) 70 (>60 ml/min/1.73 sqM); Potassium 4.5 mmol/L (3.5-5.1); Sodium 139 mmol/L (137-145); Total Bilirubin 0.5 mg/dL (0.2-1.3); Total Protein 7.6 g/dL (6.3-8.2)
[2024-08-28] MEDS: traMADol 50 MG STARTER PACK 3 TAB BTL PO STA (18:51)
[2024-08-28] MEDS: ACET/COD 300 MG/30 MG STARTER PACK 6 TAB BTL PO STA (18:51)
[2024-08-28 18:57] VITALS: BP 134/84; PULSE 84; RESP 20
== END 2024-08-28 18:56 | disposition home or self-care (01) ==
LOC: EC 16:15
DX: G89.29 Other chronic pain (principal); M54.6 Pain in thoracic spine; F17.200 Nicotine dependence, unspecified, uncomplicated; Z88.1 Allergy status to other antibiotic agents; Z91.018 Allergy to other foods
CPT/HCPCS: 36415; 80053; 82150; 83690; 84484; 85025; 99284; 96374; 96375; 96361; J1171; J1885